=== PATIENT | female | born 1990 | race Caucasian/White ===

== ENCOUNTER 2025-02-09 17:02 | Inpatient (IN) ==
--- NOTE | 2025-02-09 17:59 | CT Scan Report ---
Clinical History: Possible stroke. Technique: Axial computed tomography images were obtained of the brain from the vertex to the skull base without intravenous contrast. Findings: There is no sign of intracranial hemorrhage. There is normal moya-white matter differentiation with no sign of acute or old infarction. No midline shift or other form of herniation is identified. There is no hydrocephalus. There is calcification in the left lentiform nucleus No obvious mass lesion is seen on this noncontrast examination. The visualized portions of the orbits and paranasal sinuses appear unremarkable. The mastoid air cells appear clear Impression: Unremarkable noncontrast CT of the brain Electronically signed by Brayden Fine 02-09-2025 5:57 PM
[2025-02-09 18:07] LABS: Hematocrit (blood only) 32.4 % (37.0-47.0); Hemoglobin 9.9 g/dl (12.0-16.0); Mean Corpuscular Hemoglobin 22.6 pg (25.0-34.0); Mean Corpuscular Volume 73.8 fL (80.0-100.0); Platelet Count 335 K/uL (130-400); RDW Standard Deviation 45.3 fL (36.4-46.3); Red Blood Count 4.39 M/uL (4.20-5.40); White Blood Count 7.60 K/ul (4.8-10.8)
--- NOTE | 2025-02-09 18:15 | Emergency Department Note ---
History of Present Illness General Chief complaint: Neuro Symptoms/Deficit Stated complaint: HEADACHES, NECK PAIN, ARM NUMBNESS Time Seen by Provider: 02/09/25 18:02 History of Present Illness This is a 34-year-old female that presents to the emergency department via private vehicle with complaints of "headaches, neck pain, arm numbness". The patient provides a detailed history noting that she began with a headache and nausea this past (02/04/25), then the following day on Saturday (02/05/25) she felt the same and began with her menstrual cycle. Then this past Saturday (02/06/25) evening she began with neck pain diffusely posteriorly and then this past Saturday (02/07/25) morning developed a headache, left arm numbness and neck pain that progressed into yesterday (02/08/25) morning noting same symptoms followed by same symptoms today. No speech trouble. No pertinent past medical history, surgeries or allergies. Intermittent chest pain noted and dyspnea. No history of CVA or TIA. No trauma or injury. No recent or current illness. Home Medications Medication Instructions Recorded Confirmed Type No Known Home Medications 02/09/25 02/09/25 History Allergies Allergy/AdvReac Type Severity Reaction Status Date / Time No Known Allergies Allergy Unverified 02/09/25 20:16 Past Med/Surg History Problem List Social History Smoking Status: Former smoker Tobacco Type: Cigarettes Preferred Language: Khmer Feels Safe at Home: Yes Review of Systems A total of 10 systems reviewed and were otherwise negative Physical Exam Vital Signs Vital Signs - 24 hr 02/09/25 17:03 02/09/25 17:03 02/09/25 17:11 Temperature 37.3 C Temperature Source Temporal Artery Scan Pulse Rate 126 H Pulse Rate [Finger] Pulse Rate from SpO2 Sensor Pulse Rhythm [Finger] Pulse Strength [Finger] Respiratory Rate 18 Respiratory Depth Blood Pressure 122/73 Blood Pressure [Left Arm] Blood Pressure Mean 89 Blood Pressure Mean [Left Arm] Blood Pressure Position [Left Arm] Pulse Oximetry 100 98 98 Oxygen Delivery Method Room Air Room Air Sepsis Recent Fever Within 48 Hours No Sepsis New/Unexplained Change in Mental Status N/A Sepsis Action Taken by Nursing No Action Required 02/09/25 17:43 02/09/25 18:40 02/09/25 19:30 Temperature Temperature Source Pulse Rate 92 H 98 H Pulse Rate [Finger] Pulse Rate from SpO2 Sensor 94 H Pulse Rhythm [Finger] Pulse Strength [Finger] Respiratory Rate 16 Respiratory Depth Blood Pressure 122/72 Blood Pressure [Left Arm] Blood Pressure Mean 88 Blood Pressure Mean [Left Arm] Blood Pressure Position [Left Arm] Pulse Oximetry 100 Oxygen Delivery Method Room Air Sepsis Recent Fever Within 48 Hours Sepsis New/Unexplained Change in Mental Status Sepsis Action Taken by Nursing 02/09/25 21:33 02/09/25 22:00 02/09/25 22:30 Temperature Temperature Source Pulse Rate 92 H 101 H Pulse Rate [Finger] 90 Pulse Rate from SpO2 Sensor Pulse Rhythm [Finger] Regular Pulse Strength [Finger] Normal Respiratory Rate 20 15 18 Respiratory Depth Normal Blood Pressure 117/67 105/65 Blood Pressure [Left Arm] 113/71 Blood Pressure Mean 83 78 Blood Pressure Mean [Left Arm] 85 Blood Pressure Position [Left Arm] Lying Pulse Oximetry 98 Oxygen Delivery Method Room Air Sepsis Recent Fever Within 48 Hours Sepsis New/Unexplained Change in Mental Status Sepsis Action Taken by Nursing 02/09/25 22:41 Temperature Temperature Source Pulse Rate 106 H Pulse Rate [Finger] Pulse Rate from SpO2 Sensor Pulse Rhythm [Finger] Pulse Strength [Finger] Respiratory Rate Respiratory Depth Blood Pressure Blood Pressure [Left Arm] Blood Pressure Mean Blood Pressure Mean [Left Arm] Blood Pressure Position [Left Arm] Pulse Oximetry Oxygen Delivery Method Sepsis Recent Fever Within 48 Hours Sepsis New/Unexplained Change in Mental Status Sepsis Action Taken by Nursing VITAL SIGNS - Vital signs and nursing notes were reviewed. Stable and afebrile. GENERAL -34-year-old female appearing her stated age who is in no acute distress. Communicates well with provider and answers questions appropriately. SKIN - Without rashes. No meningeal or petechial rash. HEAD - NC/AT. EYES - PERRL with EOMI bilaterally. Sclera anicteric. EARS - No deformities of external structures noted on gross examination bilaterally. External auditory canals without discharge or otorrhea. Tympanic membranes pearly moya without retraction or bulging. No fluid or purulent material visualized behind the TM. Handle of malleus, umbo, cone of light, pars tensa/flaccid all easily visualized. NOSE - Midline and without cyanosis. No epistaxis or purulent drainage noted. Septum midline without deviation or septal hematoma noted. MOUTH/OROPHARYNX - Without perioral cyanosis. Buccal mucosa pink and moist and without leukoplakia. Tongue midline with equal elevation of palate bilaterally. No tonsillar hypertrophy, erythema, or exudates noted. Good dentition noted. NECK - Neck with FROM. Supple to palpation. No lymphadenopathy noted. No nuchal rigidity. There is tenderness to palpation overlying the posterior neck within the paraspinous musculature. No C-spine tenderness. LUNGS - Chest wall symmetric without accessory muscle use, intercostals retractions, or central cyanosis. Normal vesicular breath sounds CTA B/L. No wheezes, rales, or rhonchi appreciated. CARDIAC - RRR EXTREMITIES - No clubbing or peripheral cyanosis. Bilateral biceps reflexes within normal limits. [employer] strength of the upper extremities within normal limits. Patient is unable to actively abduct the left shoulder but will abduct with the assist of her right hand to lift the arm. +5/5 strength noted in UE/LE bilaterally. NEUROLOGIC - Cranial nerves II through XII grossly intact. Sensory intact to light touch throughout. Sensory intact throughout the extremities without sensory deficit. PSYCH -alert, oriented and pleasant on exam. Course Administered Medications Discontinued Medications Ioversol (Optiray 320 125ml) 115 ml IV ONCE ONE Stop: 02/09/25 18:56 Last Admin: 02/09/25 18:55 Dose: 115 ml Documented By: JON Medical Decision Making Laboratory Data 02/09/25 17:45 02/09/25 17:45 Lab Results 02/09/25 02/09/25 Range/Units 17:45 18:08 WBC 7.60 (4.8-10.8) K/ul RBC 4.39 (4.20-5.40) M/uL Hgb 9.9 L (12.0-16.0) g/dl POC Hgb 9.2 L (12.0-16.0) g/dl Hct 32.4 L (37.0-47.0) % POC Hct 27 L (37-47) % MCV 73.8 L (80.0-100.0) fL MCH 22.6 L (25.0-34.0) pg MCHC 30.6 L (32.0-36.0) g/dL RDW Std Deviation 45.3 (36.4-46.3) fL RDW Coeff of Rosi 16.9 H (11.5-14.5) % Plt Count 335 (130-400) K/uL MPV 9.6 (9.4-12.4) fL PT 10.9 (9.0-12.0) Seconds INR 1.0 (0.9-1.1) APTT 27 (21-31) Seconds PTT Ratio 1.0 POC Sodium 139 (135-144) mmol/L Sodium 139 (136-145) mmol/L POC Potassium 3.6 (3.3-5.0) mmol/L Potassium 3.6 (3.5-5.1) mmol/L POC Chloride 103 (101-112) mmol/L Chloride 103 (98-107) mmol/L Carbon Dioxide 26 (21-32) mmol/L POC Total CO2 23 L (24-31) mmol/L Anion Gap 10 (3-11) POC Anion Gap 18.0 (16-25) mmol/L POC BUN 12 (7-18) mg/dl BUN 13 (6-23) mg/dl Creatinine 0.59 L (0.6-1.2) mg/dl POC Creatinine 0.6 (0.6-1.3) mg/dl Est Cr Clr Drug Dosing 113.7 ml/min eGFR 121.21 BUN/Creatinine Ratio 22.0 H (10-20) Glucose 127 H (70-99(Fasting)) mg/dl POC Glucose (other) 122 H (70-99) mg/dl Calcium 9.5 (8.6-10.3) mg/dl POC Ioniz Calcium Christie 1.20 (1.12-1.32) mmol/l Magnesium 2.1 (1.7-2.4) mg/dl Total Bilirubin 0.4 (0.2-1.0) mg/dl AST 45 H (13-39) U/L ALT 50 (7-52) U/L Alkaline Phosphatase 78 (34-104) U/L Troponin I High Sens < 2.3 (0-14) pg/ml Total Protein 8.4 H (6.0-8.3) gm/dl Albumin 4.5 (3.4-5.0) gm/dl Globulin 3.9 (2.5-4.0) gm/dl Albumin/Globulin Ratio 1.2 (0.9-2) HCG, Qual Negative (Negative) Imaging Data Radiologist's Impression: Head CT 02/09/25 17:11 Clinical History: Possible stroke. Technique: Axial computed tomography images were obtained of the brain from the vertex to the skull base without intravenous contrast. Findings: There is no sign of intracranial hemorrhage. There is normal moya-white matter differentiation with no sign of acute or old infarction. No midline shift or other form of herniation is identified. There is no hydrocephalus. There is calcification in the left lentiform nucleus No obvious mass lesion is seen on this noncontrast examination. The visualized portions of the orbits and paranasal sinuses appear unremarkable. The mastoid air cells appear clear Impression: Unremarkable noncontrast CT of the brain Electronically signed by Brayden Fine 02-09-2025 5:57 PM Head CTA 02/09/25 18:14 Clinical history: Headache Technique: Axial computed tomography images were obtained of the brain after the administration of intravenous contrast according to the CT angiogram protocol Findings: There is calcification within the left lentiform nucleus No definite stenosis or aneurysm is seen of the anterior, middle, or posterior cerebral artery circulations. The visualized vertebral arteries and the basilar artery appear unremarkable Impression: No definite stenosis or aneurysm of the intracranial arteries Electronically signed by Brayden Fine 02-09-2025 7:10 PM Neck CTA 02/09/25 18:14 Clinical history: Neck pain Technique: Axial computed tomography images were obtained of the neck after the administration of intravenous contrast according to the CT angiogram protocol Findings: No stenosis is seen of the common carotid arteries bilaterally. The carotid bulbs appear normal. The remainder of the internal carotid arteries appear patent bilaterally. No stenosis of the external carotid arteries is seen The vertebral arteries are patent bilaterally with no significant stenosis seen. The visualized thoracic aorta appears unremarkable Impression: No definite stenosis of the neck arteries Electronically signed by Brayden Fine 02-09-2025 7:14 PM Chest CTA 02/09/25 18:17 CT pulmonary angiogram with IV contrast History: Chest pain COMPARISON: None TECHNIQUE: CT angiography of the chest was performed without IV contrast followed by IV contrast, including 3D post processing CTA image reconstruction. Dose reduction techniques were achieved by using automatic exposure control and/or adjustment of mA and/or kV according to patient size and/or use of iterative reconstruction technique. FINDINGS: Diagnostic quality: Adequate There is no evidence for pulmonary embolism. The heart is not enlarged. There is no pericardial effusion. There are no abnormally enlarged hilar or mediastinal lymph nodes. The central tracheobronchial tree is clear. The lungs are clear. There is no pleural effusion. Limited visualized upper abdomen. No destructive osseous changes are seen. IMPRESSION: No evidence for pulmonary embolism. Electronically signed by Agapito Godoyraeannie 02-09-2025 7:18 PM Cervical Spine MRI 02/09/25 19:27 Exam(s): MRI C SPINE EXAM: MR Cervical Spine Without Intravenous Contrast CLINICAL HISTORY: Reason for exam: neck pain, L arm numbness/pain. TECHNIQUE: Magnetic resonance images of the cervical spine without intravenous contrast in multiple planes. COMPARISON: No relevant prior studies available. FINDINGS: Vertebrae: Unremarkable. No acute fracture. Spinal cord: See below. Soft tissues: Unremarkable. DISCS/SPINAL CANAL/NEURAL FORAMINA: C2-C3: Unremarkable. No significant disc disease. No stenosis. C3-C4: Unremarkable. No significant disc disease. No stenosis. C4-C5: Unremarkable. No significant disc disease. No stenosis. C5-C6: Broad-based posterior disc bulge at C5-C6 resulting in mild effacement of the anterior epidural space without significant canal or foraminal stenosis. No cord signal abnormality. C6-C7: Unremarkable. No significant disc disease. No stenosis. C7-T1: Unremarkable. No significant disc disease. No stenosis. IMPRESSION: No acute findings in the cervical spine. Electronically signed by: Bryan Holguin MD 02/09/25 22:12 PM [facility] Narrative Patient was seen and evaluated as above in room B09. Review was performed of triage nursing notes and vital signs. No previous visits for review at time of evaluation. After obtaining a thorough history and physical examination the above work up was performed. Patient presents to us today for evaluation of left upper extremity numbness extending from the left shoulder to the left elbow with associated weakness. Patient is not a TNK candidate noting timing of symptoms. The patient has symptoms today that progressively worsened since this past , and all of which were present yesterday into today. Patient denies any trauma or injury. Options of care were discussed with the patient. IV access was established. Labs were drawn. Patient is tachycardic on arrival. Laboratory studies here reveal no leukocytosis. There is anemia with hemoglobin at 9.9, no previous to compare. Coags are normal. No evidence of kidney or liver failure. hCG returned negative. There is mild elevation of AST at 45. Troponin within normal range. An EKG was performed and per my interpretation this reveals normal sinus rhythm at a rate of 92 bpm. QTc 442. QRS 102. No ST elevation on this rhythm tracing. CT Noncon of the head was negative. Patient then underwent angio studies of the head and neck but also chest noting a tachycardic state, intermittent chest pain per patient as well as the head and neck pain. It was felt that the benefit outweighed risk. Results as above. These were essentially negative. Suspicion was more of cervical radiculopathy noting overall negative CTAs therefore MRI of the C-spine was performed to further assess the patient's left upper extremity numbness and apparent inability to abduct the left shoulder secondary to weakness/numbness. The MRI of the neck was essentially negative for acute process. There was note of a broad-based posterior disc bulge at C5-C6 but this only resulted in mild effacement of the anterior epidural space without significant canal or foraminal stenosis. No cord signal abnormality. At this time noting the patient's ongoing left upper extremity symptoms I do believe that further evaluation and management in the inpatient setting is warranted. There is no reproducible tenderness when I palpate overlying the left shoulder area. No reported injury to suggest rotator cuff injury or similar. The case was discussed with the hospitalist service. Please refer to further documentation regarding her stay. I discussed the case with Dr. Krishnamurthy, not in the hospitalist at 2245 HRS. Initially I had ordered MRI brain in further workup but patient does note significant claustrophobia. Plan will be to proceed with this at a later time as the patient may require medication for this. In the evaluation and treatment of this patient the following differential diagnoses were entertained: CVA, TIA, cervical radiculopathy, vertebral artery dissection, strain, sprain, among others. Impression & Plan Left upper extremity numbness, Headache, Neck pain Discharge Plan Visit Data Chief Complaint: Neuro Symptoms/Deficit Stated Complaint: HEADACHES, NECK PAIN, ARM NUMBNESS ED Provider: Ariel Chen ED Midlevel Provider: Sage Vanegas Prescriptions Prescriptions: No Action No Known Home Medications
[2025-02-09 18:23] LABS: Pregnancy Test, Serum Negative (Negative)
[2025-02-09 18:26] LABS: Alanine Aminotransferase 50 U/L (7-52); Albumin Globulin Ratio 1.2 (0.9-2); Alkaline Phosphatase 78 U/L (34-104); Anion Gap 10 (3-11); Bilirubin,Total 0.4 mg/dl (0.2-1.0); Blood Urea Nitrogen 13 mg/dl (6-23); Calcium 9.5 mg/dl (8.6-10.3); Carbon Dioxide 26 mmol/L (21-32); Chloride 103 mmol/L (98-107); Creatinine Clr Calc Pharmacy 113.7 ml/min; Globulin 3.9 gm/dl (2.5-4.0); Glucose 127 mg/dl (70-99(Fasting)); Magnesium 2.1 mg/dl (1.7-2.4); Potassium 3.6 mmol/L (3.5-5.1); Sodium 139 mmol/L (136-145); Total Protein 8.4 gm/dl (6.0-8.3)
[2025-02-09 18:50] LABS: INR 1.0 (0.9-1.1); Partial Thromboplastin Time 27 Seconds (21-31); Prothrombin Time 10.9 Seconds (9.0-12.0)
[2025-02-09] MEDS: OPTIRAY 320 125ml IV ONE (18:55)
--- NOTE | 2025-02-09 19:10 | CT Scan Report ---
Clinical history: Headache Technique: Axial computed tomography images were obtained of the brain after the administration of intravenous contrast according to the CT angiogram protocol Findings: There is calcification within the left lentiform nucleus No definite stenosis or aneurysm is seen of the anterior, middle, or posterior cerebral artery circulations. The visualized vertebral arteries and the basilar artery appear unremarkable Impression: No definite stenosis or aneurysm of the intracranial arteries Electronically signed by Brayden Fine 02-09-2025 7:10 PM
--- NOTE | 2025-02-09 19:14 | CT Scan Report ---
Clinical history: Neck pain Technique: Axial computed tomography images were obtained of the neck after the administration of intravenous contrast according to the CT angiogram protocol Findings: No stenosis is seen of the common carotid arteries bilaterally. The carotid bulbs appear normal. The remainder of the internal carotid arteries appear patent bilaterally. No stenosis of the external carotid arteries is seen The vertebral arteries are patent bilaterally with no significant stenosis seen. The visualized thoracic aorta appears unremarkable Impression: No definite stenosis of the neck arteries Electronically signed by Brayden Fine 02-09-2025 7:14 PM
--- NOTE | 2025-02-09 19:18 | CT Scan Report ---
CT pulmonary angiogram with IV contrast History: Chest pain COMPARISON: None TECHNIQUE: CT angiography of the chest was performed without IV contrast followed by IV contrast, including 3D post processing CTA image reconstruction. Dose reduction techniques were achieved by using automatic exposure control and/or adjustment of mA and/or kV according to patient size and/or use of iterative reconstruction technique. FINDINGS: Diagnostic quality: Adequate There is no evidence for pulmonary embolism. The heart is not enlarged. There is no pericardial effusion. There are no abnormally enlarged hilar or mediastinal lymph nodes. The central tracheobronchial tree is clear. The lungs are clear. There is no pleural effusion. Limited visualized upper abdomen. No destructive osseous changes are seen. IMPRESSION: No evidence for pulmonary embolism. Electronically signed by Mao Godoy 02-09-2025 7:18 PM
--- NOTE | 2025-02-09 22:13 | Magnetic Resonance Report ---
Exam(s): MRI C SPINE EXAM: MR Cervical Spine Without Intravenous Contrast CLINICAL HISTORY: Reason for exam: neck pain, L arm numbness/pain. TECHNIQUE: Magnetic resonance images of the cervical spine without intravenous contrast in multiple planes. COMPARISON: No relevant prior studies available. FINDINGS: Vertebrae: Unremarkable. No acute fracture. Spinal cord: See below. Soft tissues: Unremarkable. DISCS/SPINAL CANAL/NEURAL FORAMINA: C2-C3: Unremarkable. No significant disc disease. No stenosis. C3-C4: Unremarkable. No significant disc disease. No stenosis. C4-C5: Unremarkable. No significant disc disease. No stenosis. C5-C6: Broad-based posterior disc bulge at C5-C6 resulting in mild effacement of the anterior epidural space without significant canal or foraminal stenosis. No cord signal abnormality. C6-C7: Unremarkable. No significant disc disease. No stenosis. C7-T1: Unremarkable. No significant disc disease. No stenosis. IMPRESSION: No acute findings in the cervical spine. Electronically signed by: Bryan Holguin MD 02/09/25 22:12 PM
--- NOTE | 2025-02-09 23:44 | History & Physical Report ---
Date of Service February 09, 2025 Assessment & Plan (1) Left upper extremity numbness: (2) Complicated migraine: Plan Patient is a 34 y/o F with PMHx of migraines who comes to the ED after experiencing progressively worsening headaches since 02/04. (L) UE weakness Hx migraines - Head CT, Head CTA, Neck CTA, and Chest CTA all unremarkable - C-spine MRI showing broad-based posterior disc bulge at C5-C6 resulting in mild effacement of the anterior epidural space without significant canal or foraminal stenosis. Low suspicion for this being the cause given exam findings and distribution of sxs. - Given that symptoms were only present when she was experiencing headaches, and given her known hx of migraines, believe that current presentation may be due to complicated migraines. - Admit to Med/Surg - MRI brain ordered - Pain control with Tylenol jeffrey, as well as Toradol for breakthrough pain, and if MRI unremarkable, can add Sumatriptan which she could continue to use for abortive therapy after discharge - LR @ 100 ml/hr - Would encourage establishing with PCP for routine f/u and for monitoring of her migraines Dispo: Med/Surg Fluids: LR @ 100 ml/hr Diet: Regular Pain Control: Tylenol jeffrey, Toradol for breakthrough pain; can add Sumatriptan if MRI brain unremarkable VTE ppx: Ambulation Code Status: FULL History of Present Illness Chief Complaint: Arm weakness Primary Care Provider: NO PCP Patient is a 34 y/o F with PMHx of migraines who comes to the ED after experiencing progressively worsening headaches since 02/04. The day after her headache appeared, she developed nausea and on 02/06 started to develop some neck tightness along with her headache. Sxs persisted and on 02/07-02/08 she started to experience pain in her left shoulder that was achy and felt like shooting down her arm sometimes, numbness down her left arm and then developed weakness in her left arm. Sxs always accompanied by headaches. Sxs more bothersome with start of menses on 02/05-02/06. Not currently on hormonal methods of contraception. Denies trauma, hx of surgical intervention, or other preceding/precipitating events. No fevers, chills, chest pain, SOB/EDWARDS, or other systemic sxs. Medical History: [Reviewed] Medications: [Reviewed] Surgical History: [Reviewed] Family history: [Reviewed] Allergies: [Reviewed] Social History: [Reviewed] Code Status: FULL Allergies Allergy/AdvReac Type Severity Reaction Status Date / Time No Known Allergies Allergy Unverified 02/09/25 20:16 Home Medications Medication Instructions Recorded Confirmed Type No Known Home Medications 02/09/25 02/09/25 History Past Med/Surg History Problem List (Updated 02/09/25 @ 23:53 by Mely Colón MD) Complicated migraine Left arm weakness Neck pain (Acute) Headache (Acute) Left upper extremity numbness (Acute) Social History Smoking Status: Never smoker Tobacco Type: Cigarettes Hx Alcohol Use: Yes Hx Substance Use: No Preferred Language: Venezuelan Communication Ability: Effective Seismograph Computer Required: No Beliefs That Will Affect Care: None Current Living Situation: Significant Other Other Information That Helps Us Care for You: No Feels Safe at Home: Yes Safety Concerns: Feels Safe At This Time Assistive Devices: None Review of Systems Review of Systems: As per HPI Physical Exam Physical Exam: GENERAL: AAOX3, afebrile, NAD HEAD: AT, NC EYES: NEIL, EOM intact THROAT: normal to visual inspection CHEST: symmetric chest expansions with respirations CARDIO: RRR, no r/m/g PULMONARY: CT bilaterally, normal respiratory distress GI: soft, nontender, nondistended EXTREMITIES: No obvious deformity or skin discoloration noted on exam, 5/5 strength in right UE, 4/5 strength in left UE, no sensorial changes noted, negative Spurlings bilaterally, unable to fully ABD left arm past 90 degrees, full ABD in right arm Results & Data Results & Data Vital Signs (Past 12 Hours) Vital Signs Temp Pulse Pulse Resp BP BP Pulse Ox 02/09/25 22:41 106 H 02/09/25 22:30 101 H 18 105/65 02/09/25 22:00 92 H 15 117/67 02/09/25 21:33 90 20 113/71 98 02/09/25 19:30 98 H 16 122/72 100 02/09/25 18:40 92 H 02/09/25 17:43 02/09/25 17:11 98 02/09/25 17:03 98 02/09/25 17:03 37.3 C 126 H 18 122/73 100 O2 Del Method 02/09/25 22:41 02/09/25 22:30 02/09/25 22:00 02/09/25 21:33 Room Air 02/09/25 19:30 02/09/25 18:40 02/09/25 17:43 Room Air 02/09/25 17:11 Room Air 02/09/25 17:03 Room Air 02/09/25 17:03 Supervising Physician Co-Signing Physician Notes Attending addendum: I have physically seen this patient, have supervised the medical residents activities, and agree with the H&P unless as otherwise noted. Assessment and Plan: The patient is a 34-year-old female with past medical history including migraines, who presents to the emergency department with progressively worsening headache since 02/04, and the development of left upper extremity numbness and w eakness down to elbow over the past few days. She underwent CT scan head, CTA head and neck, and CTA PE protocol by ED, all of which were negative. She underwent MRI of cervical spine, which showed a posterior disc bulge at C5-C6, resulting in mild effacement of the anterior epidural space without significant canal or foraminal stenosis. She was then referred for evaluation for admission due to the persistence of her symptoms. Left upper extremity weakness- Patient describes symptoms as extending across her left shoulder down to the level of her elbow. She does not describe neck pain per se. She has no history of trauma or any type of overuse syndrome as reviewed with her. MRI C-spine shows a broad-based posterior disc bulge at C5-C6 resulting in mild effacement of the anterior epidural space without significant canal or foraminal stenosis Admit to medical surgical Order MRI brain Acetaminophen 1 g IV every 8 hours as needed for mild pain or fever Toradol 10 mg IV every 6 hours as needed for breakthrough pain LR at 100 mL/h Differential including complicated migraine, as patient has had progressively worsening headaches since 02/04 Migraine headaches- Not currently on treatment If MRI of brain is negative, consider addition of sumatriptan for use post discharge Resident Activity Tracking Resident Involvement: Resident Care Provided Care Provided: Adult [facility]
[2025-02-09] MEDS ORDERED: MELATONIN 3 MG TAB PO PRN (23:53)
[2025-02-09] MEDS ORDERED: POLYETHYLENE (MIRALAX) 17 GM PACK PO PRN (23:53)
[2025-02-09] MEDS ORDERED: ONDANSETRON INJ 2 MG/ML 2 ML VIAL IV PRN (23:53)
[2025-02-10] MEDS: ACETAMINOPHEN 500 MG TAB PO SCH (00:42)
[2025-02-10] MEDS: LACTATED RINGER'S 1,000 ML IV SCH (00:42)
--- NOTE | 2025-02-10 00:53 | Magnetic Resonance Report ---
EXAM: MR brain wo con CLINICAL HISTORY: Weakness TECHNIQUE: Multisequential and multiplanar images of the brain were submitted for review without contrast. COMPARISON: none FINDINGS: The brain shows normal morphology, signal intensity, and volume for age. No focal parenchymal lesions are seen. No intracranial hemorrhage, mass effect, midline shift, extra-axial collection, or hydrocephalus is identified. Ventricles, sulci, and basal cisterns are symmetric and normal in size and configuration. Diffusion-weighted sequences show no evidence of acute ischemic infarction. Midline structures including the pituitary gland, corpus callosum, pineal region, and brainstem are unremarkable. The craniovertebral junction is within normal limits. No calvarial abnormalities are identified. The paranasal sinuses and mastoid air cells are clear. Orbital structures are unremarkable. Appropriate flow voids are present in the visualized intracranial vessels. IMPRESSION: 1. No acute ischemia, space occupying mass, or other acute intracranial pathology is demonstrated. Electronically signed by Catracho Can 02-10-2025 12:52 AM
[2025-02-10 01:08] LABS: Lyme Screen Rflx Confirmation Equivocal (Negative)
[2025-02-10 01:52] LABS: Lyme Ab IgG 2nd Tier Confirm Negative (Negative); Lyme Ab IgM 2nd Tier Confirm Positive (Negative)
--- NOTE | 2025-02-10 03:08 | Billing Data ---
Date of Service February 10, 2025 Coding Level of Care Code 13970 INT INP/OBS CARE
[2025-02-10] MEDS: DOXYCYCLINE HYCLATE 100 MG CAP PO SCH (08:43)
[2025-02-10] MEDS: SODIUM CHLORIDE 0.9% 1,000 ML IV SCH ×2 (12:06→18:49)
--- NOTE | 2025-02-10 12:10 | Electrocardiogram Report ---
Test Reason : Blood Pressure : */* mmHG Vent. Rate : 92 BPM Atrial Rate : 92 BPM P-R Int : 162 ms QRS Dur : 102 ms QT Int : 358 ms P-R-T Axes : 51 100 45 degrees QTcB Int : 442 ms Normal sinus rhythm Rightward axis Incomplete right bundle branch block Nonspecific ST and T wave abnormality No previous ECGs available Confirmed by Ghanshyam Gates ([id number]) on 02/10/2025 12:10:35 PM Referred By: Confirmed By: Ghanshyam Gates
[2025-02-10] MEDS: OPTIRAY 320 125ml IV ONE (14:42)
--- NOTE | 2025-02-10 14:45 | Ultrasound Report ---
ULTRASOUND LEFT UPPER EXTREMITY VENOUS CLINICAL HISTORY: Acute pain and swelling of the left arm. COMPARISON STUDY: None. TECHNIQUE: Real-time, grayscale, and color Doppler sonography of the deep veins of the left upper ext remity is performed. Compression and augmentation were utilized. FINDINGS: There is no sonographic evidence of deep venous thrombosis identified in the left upper ext remity. The left internal jugular, axillary, and brachial veins are patent and normally compressible. Normal venous waveforms and augmentation are seen within the left subclavian vein. The cephalic and basilic veins are not well-visualized. The visualized radial and ulnar veins are patent. IMPRESSION: There is no sonographic evidence of deep venous thrombosis identified in the left upper e xtremity. ACT 112: Negative or not required by law. Electronically signed by: Chris Morley M.D. 02/10/2025 2:44 PM
[2025-02-10] MEDS: ONDANSETRON INJ 2 MG/ML 2 ML VIAL IV PRN (14:59)
--- NOTE | 2025-02-10 15:12 | CT Scan Report ---
CT abdomen pelvis wo/w con CLINICAL HISTORY: anemia, r/o abdominal mass COMPARISON STUDY: None FINDINGS: There is a very small left pleural effusion at the left base versus oblong pericardial cyst . Vascular findings: There is no abdominal aortic aneurysm or dissection. No aortic luminal narrowing. Mesenteric and renal arteries are widely patent. Visualized arterial outflow is widely patent. No rajendra dence of hematoma or active bleeding seen. ABDOMEN: Liver and spleen have heterogeneous enhancement, likely due to arterial phase exam. Otherwis e liver, spleen, gallbladder, pancreas, and adrenal glands are unremarkable. Kidneys show no hydronep hrosis or calculi. Pelvis: Uterus and adnexa are grossly unremarkable. Urinary bladder is nondistended. No bowel inflamm ation or obstruction seen. There is moderate retained stool. No free fluid, free air, or abscess. No enlarged adenopathy. No abdominal or pelvic mass seen. Osseous structures: No acute osseous findings. IMPRESSION: No acute findings. ACT 112: Negative or not required by law. Electronically signed by: Chris Huff M.D. 02/10/2025 3:11 PM
--- NOTE | 2025-02-10 15:28 | CT Scan Report ---
CT angio chest dissec wo/w con HISTORY: 34 years-old Female with headache, left arm numbess, and pain. Acute chest pain without a TECHNIQUE: Multiple CTA images of the chest were obtained before and after the intravenous administra tion of 115 ml Optiray. Coronal and sagittal MIPS were obtained from the axial data set and were sub mitted for review. All measurements were obtained according to NASCET criteria. A dose lowering tech nique was utilized adhering to the principles of ALARA. COMPARISON: CT abdomen and pelvis of same day, CTA chest 02/09/2025 FINDINGS: CTA: There is adequate opacification of the pulmonary arteries to the level of the segmental branches with out convincing evidence of acute pulmonary embolism. Normal thoracic aorta without aneurysm, dissecti on, intramural hematoma or atherosclerosis.Heart size is normal. CT CHEST: No dominant thyroid nodule is seen. Small amount of residual thymic tissue noted within the anterior mediastinum. No pathologically adenopathy by CT size criteria. Trace pleural effusions. Minimal linea r subsegmental atelectasis versus scarring again noted within the inferior segment lingula. There is no pneumothorax, or focal airspace consolidation. Cystic structure within the left lower chest redem onstrated on image 213 measuring 10.5 x 3.8 cm. The imaged upper abdominal structures demonstrate no acute abnormality. Heterogeneity of the liver i s nonspecific and may be secondary to phase of postcontrast imaging. The osseous structures appear in tact. IMPRESSION: 1. Unremarkable CTA of the chest. 2. Trace pleural effusions. 3. Probable pericardial cyst redemonstrated measuring 10 cm. ACT 112: Negative or not required by law. The above report was generated using voice recognition software. It may contain grammatical, syntax o r spelling errors. Electronically signed by: Chris Morley M.D. 02/10/2025 3:27 PM
[2025-02-10 15:31] LABS: Hematocrit (blood only) 31.7 % (37.0-47.0); Hemoglobin 9.7 g/dl (12.0-16.0); Mean Corpuscular Hemoglobin 22.4 pg (25.0-34.0); Mean Corpuscular Volume 73.0 fL (80.0-100.0); Platelet Count 274 K/uL (130-400); RDW Standard Deviation 44.2 fL (36.4-46.3); Red Blood Count 4.34 M/uL (4.20-5.40); White Blood Count 8.70 K/ul (4.8-10.8)
[2025-02-10] MEDS: KETOROLAC TROMETHAMINE 15 MG/ML VIAL IV PRN (15:36)
--- NOTE | 2025-02-10 16:02 | Hospitalist Progress Note ---
Date of Service February 10, 2025 Assessment & Plan (1) Left upper extremity numbness: (2) Complicated migraine: Plan Patient is a 34 y/o F with PMHx of migraines who comes to the ED after experiencing progressively worsening headaches since 02/04. her brain MRI and CTA negative however, around 3:30pm on 02/10/2025; she spike fever of 38.8 check blood culture, fever episode check blood culture, urine culture consult ID neurology notified, suspect she need Lumbar puncture (L) UE weakness Hx migraines - Head CT, Head CTA, Neck CTA, and Chest CTA all unremarkable - C-spine MRI showing broad-based posterior disc bulge at C5-C6 resulting in mild effacement of the anterior epidural space without significant canal or foraminal stenosis. Low suspicion for this being the cause given exam findings and distribution of sxs. - Given that symptoms were only present when she was experiencing headaches, and given her known hx of migraines, believe that current presentation may be due to complicated migraines. - Admit to Med/Surg - MRI brain ordered - Pain control with Tylenol jeffrey, as well as Toradol for breakthrough pain, and if MRI unremarkable, can add Sumatriptan which she could continue to use for abortive therapy after discharge - LR @ 100 ml/hr - Would encourage establishing with PCP for routine f/u and for monitoring of her migraines Diet: Regular Pain Control: Tylenol jeffrey, Toradol for breakthrough pain; can add Sumatriptan if MRI brain unremarkable VTE ppx: Ambulation Code Status: FULL Admission and Anticipated Discharge Date Admission Date: February 09, 2025 Supervising Physician Co-Signing Physician Notes Attending addendum: I have physically seen this patient, have supervised the medical residents activities, and agree with the H&P unless as otherwise noted. Assessment and Plan: The patient is a 34-year-old female with past medical history including migraines, who presents to the emergency department with progressively worsening headache since 02/04, and the development of left upper extremity numbness and weakness down to elbow over the past few days. She underwent CT scan head, CTA head and neck, and CTA PE protocol by ED, all of which were negative. She underwent MRI of cervical spine, which showed a posterior disc bulge at C5-C6, r esulting in mild effacement of the anterior epidural space without significant canal or foraminal stenosis. She was then referred for evaluation for admission due to the persistence of her symptoms. Left upper extremity weakness- Patient describes symptoms as extending across her left shoulder down to the level of her elbow. She does not describe neck pain per se. She has no history of trauma or any type of overuse syndrome as reviewed with her. MRI C-spine shows a broad-based posterior disc bulge at C5-C6 resulting in mild effacement of the anterior epidural space without significant canal or foraminal stenosis Admit to medical surgical Order MRI brain Acetaminophen 1 g IV every 8 hours as needed for mild pain or fever Toradol 10 mg IV every 6 hours as needed for breakthrough pain LR at 100 mL/h Differential including complicated migraine, as patient has had progressively worsening headaches since 02/04 Migraine headaches- Not currently on treatment If MRI of brain is negative, consider addition of sumatriptan for use post discharge Subjective she was examine at 1pm was mentioned headache episode on and then on saturday/saturday was having left arm numbness and pain. also been having back pain brain MRI and brain C-spine are negative CTA head and neck are negative around 3:30pm, notifed by nursing that patient spike fever of 38.8 check blood culture, empiric coverage. Review of Systems Review of Systems: Constitutional:fever episode Cardiovascular: No Chest Pain, No SOB, No PND, No Dyspnea on Exertion, No Orthopnea, No Claudication, No Edema, No Palpitations Respiratory: No Cough, No Sputum, No Wheezing, No Smoke Exposure, No Dyspnea Gastrointestinal: No Nausea, No Vomiting, No Diarrhea, No Constipation, No Pain, No Heartburn, No Anorexia, No Dysphagia, No Hematochezia, No Melena, No Flatulence, No Jaundice Genitourinary: no dysuria Musculoskeletal: No Arthralgias, No Myalgias, No Joint Swelling, No Joint Stiffness, No Back Pain, No Neck Pain, No Injury History Skin: No Skin Lesions, No Pruritis, No Hair Changes, No Breast/Skin Changes, No Nipple Discharge Neuro: +for headache; left arm weakness; no confusion, no dizziness. Heme/Lymph: No Bruising, No Bleeding, No Transfusions History, No Lymphadenopathy Endocrine: No Polyuria, No Polydipsia, No Temperature Intolerance Physical Exam Physical Exam: VITALS: Reviewed. WEIGHT/BMI reviewed. GEN: Healthy appearing, well-developed, NAD. PSYCH: Good Judgment. AOx3. Normal memory, mood, and affect. HEENT -Head: NC/AT; -Eyes: PERRL, EOMI. No discharge or redn ess; -Ears: External ears are normal. Normal TMs. -Nose: Normal nares. -Mouth and throat: MMM. Normal gums, muc colby, palate,. Good dentition. NECK: Supple, with no masses. CV: RRR, no m/r/g. LUNGS: CTAB, no w/r/c. ABD: Soft, NT/ND, NBS, no masses or organomegaly. : N/A SKIN: Warm, well perfused. No skin rashes or abnormal lesions. MSK: No deformities, Normal gait. shoulder has normal ROM EXT: No clubbing, cyanosis, or edema. NEURO: Ambulating with no limitations. Normal muscle strength and tone. No focal deficits. Results & Data Results & Data Vital Signs (Past 12 Hours) Vital Signs Temp Pulse Pulse Resp BP BP Pulse Ox 02/10/25 15:42 38.8 C H 99 H 19 100/69 96 02/10/25 14:00 77 13 106/74 97 02/10/25 12:12 96 H 20 106/64 99 02/10/25 12:00 84 15 100 02/10/25 12:00 106/64 02/10/25 12:00 106/64 02/10/25 11:51 94 H 21 100 02/10/25 11:39 106/61 02/10/25 11:33 89 20 106/61 100 02/10/25 11:27 90 23 100 02/10/25 11:15 90 19 100 02/10/25 11:00 89 16 94/68 L 100 02/10/25 10:51 91 H 24 100 02/10/25 10:33 88 18 99 02/10/25 10:21 91 H 19 100 02/10/25 10:12 85 15 99 02/10/25 10:03 82 16 99 02/10/25 10:00 84/64 L 02/10/25 10:00 84/64 L 02/10/25 09:33 78 20 97 02/10/25 08:39 78 17 97 02/10/25 08:00 76 24 98 02/10/25 08:00 100/69 02/10/25 08:00 100/69 02/10/25 07:51 86 12 100 02/10/25 07:42 76 23 100 02/10/25 07:30 79 15 100 02/10/25 07:28 100/61 02/10/25 07:28 100/61 02/10/25 07:21 88 12 99 02/10/25 07:12 76 19 98 02/10/25 07:06 70 22 98 02/10/25 06:59 63 02/10/25 06:51 71 16 98/63 L 98 02/10/25 06:45 68 19 99 02/10/25 06:21 64 18 97 02/10/25 06:15 72 27 H 97 02/10/25 06:00 98/63 L 02/10/25 06:00 98/63 L 02/10/25 06:00 72 17 97 02/10/25 06:00 66 16 98/63 L 100 02/10/25 05:51 73 23 97 02/10/25 05:45 76 32 H 97 02/10/25 05:39 72 22 97 02/10/25 05:21 71 28 H 97 02/10/25 05:18 76 26 H 97 02/10/25 05:06 75 17 97 02/10/25 04:51 83 16 98 02/10/25 04:36 69 27 H 97 02/10/25 04:00 95/60 L O2 Del Method 02/10/25 15:42 Room Air 02/10/25 14:00 Room Air 02/10/25 12:12 02/10/25 12:00 02/10/25 12:00 02/10/25 12:00 02/10/25 11:51 02/10/25 11:39 02/10/25 11:33 02/10/25 11:27 02/10/25 11:15 02/10/25 11:00 02/10/25 10:51 02/10/25 10:33 02/10/25 10:21 02/10/25 10:12 02/10/25 10:03 02/10/25 10:00 02/10/25 10:00 02/10/25 09:33 02/10/25 08:39 02/10/25 08:00 02/10/25 08:00 02/10/25 08:00 02/10/25 07:51 02/10/25 07:42 02/10/25 07:30 02/10/25 07:28 02/10/25 07:28 02/10/25 07:21 02/10/25 07:12 02/10/25 07:06 02/10/25 06:59 02/10/25 06:51 02/10/25 06:45 02/10/25 06:21 02/10/25 06:15 02/10/25 06:00 02/10/25 06:00 02/10/25 06:00 02/10/25 06:00 Room Air 02/10/25 05:51 02/10/25 05:45 02/10/25 05:39 02/10/25 05:21 02/10/25 05:18 02/10/25 05:06 02/10/25 04:51 02/10/25 04:36 02/10/25 04:00 Laboratory Results Laboratory Results - last 72 hr 02/09/25 02/09/25 02/09/25 17:45 18:08 23:56 WBC 7.60 RBC 4.39 Hgb 9.9 L POC Hgb 9.2 L Hct 32.4 L POC Hct 27 L MCV 73.8 L MCH 22.6 L MCHC 30.6 L RDW Std Deviation 45.3 RDW Coeff of Rosi 16.9 H Plt Count 335 MPV 9.6 PT 10.9 INR 1.0 APTT 27 PTT Ratio 1.0 POC Sodium 139 Sodium 139 POC Potassium 3.6 Potassium 3.6 POC Chloride 103 Chloride 103 Carbon Dioxide 26 POC Total CO2 23 L Anion Gap 10 POC Anion Gap 18.0 POC BUN 12 BUN 13 Creatinine 0.59 L POC Creatinine 0.6 Est Cr Clr Drug Dosing 113.7 eGFR 121.21 BUN/Creatinine Ratio 22.0 H Glucose 127 H POC Glucose (other) 122 H Calcium 9.5 POC Ioniz Calcium Christie 1.20 Magnesium 2.1 Total Bilirubin 0.4 AST 45 H ALT 50 Alkaline Phosphatase 78 Troponin I High Sens < 2.3 Total Protein 8.4 H Albumin 4.5 Globulin 3.9 Albumin/Globulin Ratio 1.2 HCG, Qual Negative Anaplasma Smear See Comment Babesia Smear See Comment Lyme Disease Screen Equivocal H Lyme Tier 2 IgG Confirm Negative Lyme Tier 2 IgM Confirm Positive H 02/10/25 15:09 WBC 8.70 RBC 4.34 Hgb 9.7 L POC Hgb Hct 31.7 L POC Hct MCV 73.0 L MCH 22.4 L MCHC 30.6 L RDW Std Deviation 44.2 RDW Coeff of Rosi 16.8 H Plt Count 274 MPV 10.0 PT INR APTT PTT Ratio POC Sodium Sodium POC Potassium Potassium POC Chloride Chloride Carbon Dioxide POC Total CO2 Anion Gap POC Anion Gap POC BUN BUN Creatinine POC Creatinine Est Cr Clr Drug Dosing eGFR BUN/Creatinine Ratio Glucose POC Glucose (other) Calcium POC Ioniz Calcium Christie Magnesium Total Bilirubin AST ALT Alkaline Phosphatase Troponin I High Sens Total Protein Albumin Globulin Albumin/Globulin Ratio HCG, Qual Anaplasma Smear Babesia Smear Lyme Disease Screen Lyme Tier 2 IgG Confirm Lyme Tier 2 IgM Confirm PG Care Time/CCT Total # of Minutes Spent Total Time Spent with Patient: Total time spent is greater than 50% in coordination of care (as documented) at patient's floor/unit and/or counseling patient: Coding Level of Care Code 84102 SUB INP/OBS CARE 2/35MIN Diagnoses Left upper extremity numbness R20.0 Complicated migraine G43.109 Time Spent (min) 35
[2025-02-10] MEDS ORDERED: VANCOMYCIN CONSULT ACTIVE PRN (16:05)
[2025-02-10] MEDS ORDERED: AMPICILLIN 250 MG in SODIUM CHLORIDE 0.9% 50 ML IV SCH (16:15)
[2025-02-10] MEDS ORDERED: VANCOMYCIN HCL / NSS 1,000 MG/270 ML BAG IV SCH (16:15)
[2025-02-10] MEDS: cefTRIAXone SODIUM 2,000 MG/50 ML BAG IV SCH (18:49)
[2025-02-10] MEDS: AMPICILLIN 2,000 MG in SODIUM CHLOR 0.9% MINI-B 100 ML IV SCH (18:50)
[2025-02-10] MEDS: BUTALBITAL/ACETAMIN/CAFFEINE TAB PO STA (18:52)
[2025-02-10] MEDS ORDERED: Nursing to Pharmacy Communication SCH (19:30)
[2025-02-10] MEDS: VANCOMYCIN HCL 1,500 MG in SODIUM CHLORIDE 0.9% 500 ML IV ONE (19:33)
[2025-02-11] MEDS: VANCOMYCIN 750 MG in SODIUM CHLORIDE 0.9% 250 ML IV SCH (04:27)
[2025-02-11 06:20] LABS: Hematocrit (blood only) 25.1 % (37.0-47.0); Hemoglobin 7.9 g/dl (12.0-16.0); Mean Corpuscular Hemoglobin 23.0 pg (25.0-34.0); Mean Corpuscular Volume 73.2 fL (80.0-100.0); Platelet Count 257 K/uL (130-400); RDW Standard Deviation 44.4 fL (36.4-46.3); Red Blood Count 3.43 M/uL (4.20-5.40); White Blood Count 8.62 K/ul (4.8-10.8)
[2025-02-11 06:51] LABS: Alanine Aminotransferase 111.0 U/L (7-52); Albumin Globulin Ratio 1.3 (0.9-2); Alkaline Phosphatase 83.0 U/L (34-104); Anion Gap 6.0 (3-11); Bilirubin,Total 0.4 mg/dl (0.2-1.0); Blood Urea Nitrogen 12.0 mg/dl (6-23); Calcium 8.0 mg/dl (8.6-10.3); Carbon Dioxide 25.0 mmol/L (21-32); Chloride 109.0 mmol/L (98-107); Creatinine Clr Calc Pharmacy 133.9 ml/min; Globulin 2.5 gm/dl (2.5-4.0); Glucose 94.0 mg/dl (70-99(Fasting)); Potassium 3.7 mmol/L (3.5-5.1); Sodium 140.0 mmol/L (136-145); Total Protein 5.8 gm/dl (6.0-8.3)
--- NOTE | 2025-02-11 08:38 | Pharmacy Report ---
Pharmacy PK ABX Note - Date of Service February 11, 2025 - Assessment and Plan Assessment 34 y/o F with PMHx of migraines who comes to the ED after experiencing progressively worsening headaches since 02/04. Brain MRI and CTA negative, however, around 3:30pm on 02/10/2025 she spiked fever of 38.8, started on IV Vancomycin, Ampicillin, Ceftriaxone, also on Doxycycline PO for Lymes, patient did report hiking, but no known direct tick exposure, Lyme IgM positive, Lyme IgG negative. Anaplasmosis and babesiosis smear negative, with antibodies pending. Blood & urine cultures pending. ID consulted. Neurology notified, suspect she needs Lumbar puncture. Day # 2 of antimicrobial therapy. Plan Vancomycin * Loading dose: 1500 mg IV x 1 * Maintenance dose: 750 mg IV every 8 hours * Regimen is predicted to achieve target AUC/DYLAN of 400-600 mg/L.hr * Trough level ordered for: 02/12/25 at 0330 Pharmacy will continue to follow and will adjust dose/frequency as necessary. Thank you. Pharmacy has transitioned to AUC monitoring for vancomycin. AUC/DYLAN is the preferred PK/PD target and is associated with decreased risk of nephrotoxicity compared to traditional trough targets.
--- NOTE | 2025-02-11 09:57 | Neurology Consultation ---
Date of Consultation February 11, 2025 Assessment & Plan (1) Headache: History of Present Illness Attending Physician: Christ Stephens DO History of Present Illness S: pt this morning dull headache with still feeling little warm but improved. neck pain persist but tolerating. chart reviewed. mri brain negative. CTA head/neck negative. MRI C spine with lost cervical lordosis and C5/6 DDD but no clear root impingement. admission HPI: Patient is a 34 y/o F with PMHx of migraines who comes to the ED after experiencing progressively worsening headaches since 02/04. The day after her headache appeared, she developed nausea and on 02/06 started to develop some neck tightness along with her headache. Sxs persisted and on 02/07-02/08 she started to experience pain in her left shoulder that was achy and felt like shooting down her arm sometimes, numbness down her left arm and then developed weakness in her left arm. Sxs always accompanied by headaches. Sxs more bothersome with start of menses on 02/05-02/06. Not currently on hormonal methods of contraception. Denies trauma, hx of surgical intervention, or other preceding/precipitating events. No fevers, chills, chest pain, SOB/EDWARDS, or other systemic sxs. Allergies Allergy/AdvReac Type Severity Reaction Status Date / Time No Known Allergies Allergy Unverified 02/09/25 20:16 Home Medications Medication Instructions Recorded Confirmed Type No Known Home Medications 02/09/25 02/09/25 History Patient History Social History Smoking Status: Never smoker Tobacco Type: Cigarettes Hx Alcohol Use: Yes Hx Substance Use: No Preferred Language: Wallisian Communication Ability: Effective Manager Acute Required: No Beliefs That Will Affect Care: None Current Living Situation: Significant Other Other Information That Helps Us Care for You: No Feels Safe at Home: Yes Safety Concerns: Feels Safe At This Time Assistive Devices: None Exam (Neuro) Physical Exam: HEENT: normocephalic grossly Neuro: Mental: AOx4, fluent speech, normal comprehension, no apraxia, no L/R confusion, no neglect CN: PERRL, Full EOM, symmetric face, midline T/U/P, grossly full ROM neck Motor: No abnormal movements, normal tone, 5/5 t/o bilaterally Sens: intact to touch b/l grossly Coord: intact DTR: 2+ sym b/l Impression: 34 yo female with acute headache with neck pain and fever, concerning for possible viral/aseptic meningitis. Recommendations: pt already on broad spectrum antibiotics ID consultation for CSF study work up for infection panel routine headache management as now with IV hydration (pt states current regiment is working and does not need change in med for her headache). not much to add from neurology call again if new question. Chart reviewed I have spent more than 50% educating patient about potential diagnosis and neurological evaluation and coordinating care with patient's treatment team. Total time spent (including chart review and coordination of care): 45 min (this includes chart review). Results & Data Vital Signs (Past 12 Hours) Vital Signs Temp Pulse Resp BP BP Pulse Ox O2 Del Method 02/11/25 08:51 36.8 C 71 16 107/69 99 Room Air 02/10/25 22:22 37.0 C 83 16 103/64 98 Room Air PG Care Time/CCT Total # of Minutes Spent Total Time Spent with Patient: Total time spent is greater than 50% in coordination of care (as documented) at patient's floor/unit and/or counseling patient: Coding Level of Care Code 65812 IN/OBS CONSULT LVL 3,45M Diagnoses Other headache syndrome G44.89 Headache type: other headache syndrome (1) Headache Headache type: other headache syndrome Qualified Code(s): G44.89 - Other headache syndrome
--- NOTE | 2025-02-11 10:58 | Infectious Disease Consult ---
Date of Consultation February 11, 2025 Assessment & Plan (1) Complicated migraine: (2) Left arm weakness: (3) Neck pain: (4) Headache: (5) Left upper extremity numbness: Plan This is a 35-year-old female with a past medical history of migraines who presents to the ED on 02/09/2025 who presents with progressive headaches since 02/04/2025. She also endorsed left upper extremity numbness and neck pain. Headaches began on 02/04/2025 with nausea. She then developed diffuse neck pain and left upper extremity numbness, weakness and left shoulder pain that progressed prompting presentation to the ED. Her symptoms worsened with initiation of her menses. She complained of chest pain and shortness of breath. She denied fever or chills. In the ED she was febrile with a TM of 38.8. Labs: WBC 7.6, hemoglobin 9.9, platelets 335, BUN 13, creatinine 0.59, AST 45--> 84, ALT 50--> 111. Lyme screen equivocal. Lyme IgG negative, IgM positive. Anaplasma smear with no evidence of intracytoplasmic neutrophil inclusions to suggest anaplasmosis. Babesia smear negative. CT head showed no acute findings. CTA head with no definite stenosis or aneurysm of the intracranial arteries. CTA neck with no definitive stenosis of the neck arteries. CTA chest with no evidence of pulmonary embolism. MRI brain with no acute ischemia, space-occupying mass or other intracranial pathology seen. No DVT of the left upper extremity. CTA PE with no acute findings. Given her fever and headaches she was started empirically on [employer] antibiotic coverage with ceftriaxone, ampicillin, vancomycin. She was started on doxycycline for possible Lyme disease. She underwent an LP this a.m. Results pending. ID consulted for fever, headache, left-sided weakness. An E consult without video evaluation completed as video/camera is not working today. History obtained from chart review. Microbiology: 02/09/2025 Anaplasma smear 02/09/2025 babesiosis smear negative 02/09/2025 Babesia PCR pending 02/09/2025 Lyme screen equivocal, Lyme IgG negative, Lyme IgM positive 02/10/2025 blood culture NGTD 02/11/2025 CSF culture in process 02/11/2025 CSF fluid studies in process Antibiotics: Ampicillin /current vancomycin /current Ceftriaxone 9/10current Doxycycline 9/10current # Headaches, fever: Rule out [employer] infection/meningitis # Possible Lyme disease # Transaminitis Discussion: Given her headache, fever, neurologic symptoms, agree with empiric coverage for potential [employer] infection. She was covered empirically for bacterial etiologies. Viral etiology such as HSV 1/2/VZV are also possible, so I will add IV acyclovir pending CSF results. She has an equivocal Lyme screen with a positive IgM, negative IgG. She has been started on oral doxycycline for possible Lyme disease . Ceftriaxone which she is on for [employer] coverage will also cover. Anaplasma and babesiosis smear is negative .Babesia PCR pending. Recommendations: Continue empiric [employer] bacterial coverage with ceftriaxone 2 g IV every 12 hours, vancomycin per pharmacy protocol, ampicillin 2 g IV every 4 hours (although Listeria meningitis is less likely given her age) Started Acyclovir 10 mg/kg IV every 8 hours for coverage of aseptic meningitis secondary to HSV or VZV, pending meningitis/encephalitis PCR results for HSV 1/2, VZV. Follow-up CSF studies including cell count with differential,glucose, protein, meningitis/encephalitis PCR, West Nile IgG/IgM, VDRL, Lyme immunoblot, CSF culture Continue doxycycline 100 mg p.o. twice daily pending Anaplasma/Ehrlichia PCR. -Follow-up serum Babesia PCR -Ordered Anaplasma/Ehrlichia PCR,if negative, will dc doxycycline as ceftriaxone also covers Lyme disease. Ordered HIV 1/2 Ag/ab. Ordered syphilis antibody with reflex RPR Thank you for this consult. ID will continue to follow. Rikki Nazario MD, MPH Infectious Disease [facility] Call [phone] with questions Consultation Information This patient recommendation is based on a telemedicine consult request which was completed asynchronously through chart review and information provided by the primary physician. The patient was not seen or examined today. The evaluation is consultative in nature and all patient care and treatment decisions can either be accepted or rejected by the patient's primary hospital-based treating physician using their own independent medical judgment for their patient. Field Map Editor contact information: Please call [facility] Center [phone]. (Phone Number For Physician Use Only) Time Spent Reviewing Chart: 31+ minutes History of Present Illness Reason for Consultation: Headache fever, LUE numbness Requesting Physician: Crhist Stephens DO Attending Physician: Christ Stephens DO History of Present Illness This is a 35-year-old female with a past medical history of migraines who presents to the ED on 02/09/2025 who presents with progressive headaches since 02/04/2025. She also endorsed left upper extremity numbness and neck pain. Headaches began on 02/04/2025 with nausea. She then developed diffuse neck pain and left upper extremity numbness, weakness and left shoulder pain that progressed prompting presentation to the ED. Her symptoms worsened with initiation of her menses. She complained of chest pain and shortness of breath. She denied fever or chills. In the ED she was febrile with a TM of 38.8. Labs: WBC 7.6, hemoglobin 9.9, platelets 335, BUN 13, creatinine 0.59, AST 45--> 84, ALT 50--> 111. Lyme screen equivocal. Lyme IgG negative, IgM positive. Anaplasma smear with no evidence of intracytoplasmic neutrophil inclusions to suggest anaplasmosis. Babesia smear negative. CT head showed no acute findings. CTA head with no definite stenosis or aneurysm of the intracranial arteries. CTA neck with no definitive stenosis of the neck arteries. CTA chest with no evidence of pulmonary embolism. MRI brain with no acute ischemia, space-occupying mass or other intracranial pathology seen. No DVT of the left upper extremity. CTA PE with no acute findings. Given her fever and headaches she was started empirically on [employer] antibiotic coverage with ceftriaxone, ampicillin, vancomycin. She was started on doxycycline for possible Lyme disease. She underwent an LP this a.m. Results pending. ID consulted for fever, headache, left-sided weakness. An E consult without video evaluation completed as video/camera is not working today. History obtained from chart review. Allergies Allergy/AdvReac Type Severity Reaction Status Date / Time No Known Allergies Allergy Unverified 02/09/25 20:16 Home Medications Medication Instructions Recorded Confirmed Type No Known Home Medications 02/09/25 02/09/25 History Patient History Social History Smoking Status: Never smoker Tobacco Type: Cigarettes Hx Alcohol Use: Yes Hx Substance Use: No Preferred Language: Icelandic Communication Ability: Effective Ticket Broker Required: No Beliefs That Will Affect Care: None Current Living Situation: Significant Other Other Information That Helps Us Care for You: No Feels Safe at Home: Yes Safety Concerns: Feels Safe At This Time Assistive Devices: None Results & Data Vital Signs (Past 12 Hours) Vital Signs Temp Pulse Resp BP Pulse Ox O2 Del Method 02/11/25 08:51 36.8 C 71 16 107/69 99 Room Air Laboratory Results Laboratory Results - last 48 hr 02/09/25 02/09/25 02/09/25 17:45 18:08 23:56 WBC 7.60 RBC 4.39 Hgb 9.9 L POC Hgb 9.2 L Hct 32.4 L POC Hct 27 L MCV 73.8 L MCH 22.6 L MCHC 30.6 L RDW Std Deviation 45.3 RDW Coeff of Rosi 16.9 H Plt Count 335 MPV 9.6 PT 10.9 INR 1.0 APTT 27 PTT Ratio 1.0 POC Sodium 139 Sodium 139 POC Potassium 3.6 Potassium 3.6 POC Chloride 103 Chloride 103 Carbon Dioxide 26 POC Total CO2 23 L Anion Gap 10 POC Anion Gap 18.0 POC BUN 12 BUN 13 Creatinine 0.59 L POC Creatinine 0.6 Est Cr Clr Drug Dosing 113.7 eGFR 121.21 BUN/Creatinine Ratio 22.0 H Glucose 127 H POC Glucose (other) 122 H Calcium 9.5 POC Ioniz Calcium Christie 1.20 Magnesium 2.1 Total Bilirubin 0.4 AST 45 H ALT 50 Alkaline Phosphatase 78 Troponin I High Sens < 2.3 Total Protein 8.4 H Albumin 4.5 Globulin 3.9 Albumin/Globulin Ratio 1.2 HCG, Qual Negative Fluid Comment Anaplasma Smear See Comment Babesia Smear See Comment Lyme Disease Screen Equivocal H Lyme Tier 2 IgG Confirm Negative Lyme Tier 2 IgM Confirm Positive H 02/10/25 02/11/25 02/11/25 15:09 05:24 10:43 WBC 8.70 8.62 RBC 4.34 3.43 L Hgb 9.7 L 7.9 L POC Hgb Hct 31.7 L 25.1 L POC Hct MCV 73.0 L 73.2 L MCH 22.4 L 23.0 L MCHC 30.6 L 31.5 L RDW Std Deviation 44.2 44.4 RDW Coeff of Rosi 16.8 H 16.7 H Plt Count 274 257 MPV 10.0 10.4 PT INR APTT PTT Ratio POC Sodium Sodium 140 POC Potassium Potassium 3.7 POC Chloride Chloride 109 H Carbon Dioxide 25 POC Total CO2 Anion Gap 6 POC Anion Gap POC BUN BUN 12 Creatinine 0.50 L POC Creatinine Est Cr Clr Drug Dosing 133.9 eGFR 126.14 BUN/Creatinine Ratio 24.0 H Glucose 94 POC Glucose (other) Calcium 8.0 L POC Ioniz Calcium Christie Magnesium Total Bilirubin 0.4 AST 84 H ALT 111 H Alkaline Phosphatase 83 Troponin I High Sens Total Protein 5.8 L D Albumin 3.3 L Globulin 2.5 Albumin/Globulin Ratio 1.3 HCG, Qual Fluid Comment Anaplasma Smear Babesia Smear Lyme Disease Screen Lyme Tier 2 IgG Confirm Lyme Tier 2 IgM Confirm Diagnostic Findings Head CT 02/09/25 17:11 Clinical History: Possible stroke. Technique: Axial computed tomography images were obtained of the brain from the vertex to the skull base without intravenous contrast. Findings: There is no sign of intracranial hemorrhage. There is normal moya-white matter differentiation with no sign of acute or old infarction. No midline shift or other form of herniation is identified. There is no hydrocephalus. There is calcification in the left lentiform nucleus No obvious mass lesion is seen on this noncontrast examination. The visualized portions of the orbits and paranasal sinuses appear unremarkable. The mastoid air cells appear clear Impression: Unremarkable noncontrast CT of the brain Electronically signed by Brayden Fine 02-09-2025 5:57 PM Head CTA 02/09/25 18:14 Clinical history: Headache Technique: Axial computed tomography images were obtained of the brain after the administration of intravenous contrast according to the CT angiogram protocol Findings: There is calcification within the left lentiform nucleus No definite stenosis or aneurysm is seen of the anterior, middle, or posterior cerebral artery circulations. The visualized vertebral arteries and the basilar artery appear unremarkable Impression: No definite stenosis or aneurysm of the intracranial arteries Electronically signed by Brayden Fine 02-09-2025 7:10 PM Neck CTA 02/09/25 18:14 Clinical history: Neck pain Technique: Axial computed tomography images were obtained of the neck after the administration of intravenous contrast according to the CT angiogram protocol Findings: No stenosis is seen of the common carotid arteries bilaterally. The carotid bulbs appear normal. The remainder of the internal carotid arteries appear patent bilaterally. No stenosis of the external carotid arteries is seen The vertebral arteries are patent bilaterally with no significant stenosis seen. The visualized thoracic aorta appears unremarkable Impression: No definite stenosis of the neck arteries Electronically signed by Brayden Fine 02-09-2025 7:14 PM Chest CTA 02/09/25 18:17 CT pulmonary angiogram with IV contrast History: Chest pain COMPARISON: None TECHNIQUE: CT angiography of the chest was performed without IV contrast followed by IV contrast, including 3D post processing CTA image reconstruction. Dose reduction techniques were achieved by using automatic exposure control and/or adjustment of mA and/or kV according to patient size and/or use of iterative reconstruction technique. FINDINGS: Diagnostic quality: Adequate There is no evidence for pulmonary embolism. The heart is not enlarged. There is no pericardial effusion. There are no abnormally enlarged hilar or mediastinal lymph nodes. The central tracheobronchial tree is clear. The lungs are clear. There is no pleural effusion. Limited visualized upper abdomen. No destructive osseous changes are seen. IMPRESSION: No evidence for pulmonary embolism. Electronically signed by Mao Godoy 02-09-2025 7:18 PM Cervical Spine MRI 02/09/25 19:27 Exam(s): MRI C SPINE EXAM: MR Cervical Spine Without Intravenous Contrast CLINICAL HISTORY: Reason for exam: neck pain, L arm numbness/pain. TECHNIQUE: Magnetic resonance images of the cervical spine without intravenous contrast in multiple planes. COMPARISON: No relevant prior studies available. FINDINGS: Vertebrae: Unremarkable. No acute fracture. Spinal cord: See below. Soft tissues: Unremarkable. DISCS/SPINAL CANAL/NEURAL FORAMINA: C2-C3: Unremarkable. No significant disc disease. No stenosis. C3-C4: Unremarkable. No significant disc disease. No stenosis. C4-C5: Unremarkable. No significant disc disease. No stenosis. C5-C6: Broad-based posterior disc bulge at C5-C6 resulting in mild effacement of the anterior epidural space without significant canal or foraminal stenosis. No cord signal abnormality. C6-C7: Unremarkable. No significant disc disease. No stenosis. C7-T1: Unremarkable. No significant disc disease. No stenosis. IMPRESSION: No acute findings in the cervical spine. Electronically signed by: Bryan Holguin MD 02/09/25 22:12 PM Brain MRI 02/10/25 00:07 EXAM: MR brain wo con CLINICAL HISTORY: Weakness TECHNIQUE: Multisequential and multiplanar images of the brain were submitted for review without contrast. COMPARISON: none FINDINGS: The brain shows normal morphology, signal intensity, and volume for age. No focal parenchymal lesions are seen. No intracranial hemorrhage, mass effect, midline shift, extra-axial collection, or hydrocephalus is identified. Ventricles, sulci, and basal cisterns are symmetric and normal in size and configuration. Diffusion-weighted sequences show no evidence of acute ischemic infarction. Midline structures including the pituitary gland, corpus callosum, pineal region, and brainstem are unremarkable. The craniovertebral junction is within normal limits. No calvarial abnormalities are identified. The paranasal sinuses and mastoid air cells are clear. Orbital structures are unremarkable. Appropriate flow voids are present in the visualized intracranial vessels. IMPRESSION: 1. No acute ischemia, space occupying mass, or other acute intracranial pathology is demonstrated. Electronically signed by Catracho Can 02-10-2025 12:52 AM Extremity Venous Study 02/10/25 12:45 ULTRASOUND LEFT UPPER EXTREMITY VENOUS CLINICAL HISTORY: Acute pain and swelling of the left arm. COMPARISON STUDY: None. TECHNIQUE: Real-time, grayscale, and color Doppler sonography of the deep veins of the left upper extremity is performed. Compression and augmentation were utilized. FINDINGS: There is no sonographic evidence of deep venous thrombosis identified in the left upper extremity. The left internal jugular, axillary, and brachial veins are patent and normally compressible. Normal venous waveforms and augmentation are seen within the left subclavian vein. The cephalic and basilic veins are not well-visualized. The visualized radial and ulnar veins are patent. IMPRESSION: There is no sonographic evidence of deep venous thrombosis identified in the left upper extremity. ACT 112: Negative or not required by law. Electronically signed by: Chris Morley M.D. 02/10/2025 2:44 PM Abdomen/Pelvis CT 02/10/25 14:16 CT abdomen pelvis wo/w con CLINICAL HISTORY: anemia, r/o abdominal mass COMPARISON STUDY: None FINDINGS: There is a very small left pleural effusion at the left base versus oblong pericardial cyst. Vascular findings: There is no abdominal aortic aneurysm or dissection. No aortic luminal narrowing. Mesenteric and renal arteries are widely patent. Visualized arterial outflow is widely patent. No evidence of hematoma or active bleeding seen. ABDOMEN: Liver and spleen have heterogeneous enhancement, likely due to arterial phase exam. Otherwise liver, spleen, gallbladder, pancreas, and adrenal glands are unremarkable. Kidneys show no hydronephrosis or calculi. Pelvis: Uterus and adnexa are grossly unremarkable. Urinary bladder is nondistended. No bowel inflammation or obstruction seen. There is moderate retained stool. No free fluid, free air, or abscess. No enlarged adenopathy. No abdominal or pelvic mass seen. Osseous structures: No acute osseous findings. IMPRESSION: No acute findings. ACT 112: Negative or not required by law. Electronically signed by: Chris Huff M.D. 02/10/2025 3:11 PM Chest CTA 02/10/25 14:16 CT angio chest dissec wo/w con HISTORY: 34 years-old Female with headache, left arm numbess, and pain. Acute chest pain without a TECHNIQUE: Multiple CTA images of the chest were obtained before and after the intravenous administration of 115 ml Optiray. Coronal and sagittal MIPS were obtained from the axial data set and were submitted for review. All measurements were obtained according to NASCET criteria. A dose lowering technique was utilized adhering to the principles of ALARA. COMPARISON: CT abdomen and pelvis of same day, CTA chest 02/09/2025 FINDINGS: CTA: There is adequate opacification of the pulmonary arteries to the level of the segmental branches without convincing evidence of acute pulmonary embolism. Normal thoracic aorta without aneurysm, dissection, intramural hematoma or atherosclerosis.Heart size is normal. CT CHEST: No dominant thyroid nodule is seen. Small amount of residual thymic tissue noted within the anterior mediastinum. No pathologically adenopathy by CT size criteria. Trace pleural effusions. Minimal linear subsegmental atelectasis versus scarring again noted within the inferior segment lingula. There is no pneumothorax, or focal airspace consolidation. Cystic structure within the left lower chest redemonstrated on image 213 measuring 10.5 x 3.8 cm. The imaged upper abdominal structures demonstrate no acute abnormality. Heterogeneity of the liver is nonspecific and may be secondary to phase of postcontrast imaging. The osseous structures appear intact. IMPRESSION: 1. Unremarkable CTA of the chest. 2. Trace pleural effusions. 3. Probable pericardial cyst redemonstrated measuring 10 cm. ACT 112: Negative or not required by law. The above report was generated using voice recognition software. It may contain grammatical, syntax or spelling errors. Electronically signed by: Chris Morley M.D. 02/10/2025 3:27 PM Medications Administered Home Medications Medication Instructions Recorded Confirmed Last Taken No Known Home Medications 02/09/25 02/09/25 Unknown Active Medications Generic Name Dose Route Start Last Admin Trade Name Freq PRN Reason Stop Dose Admin Acetaminophen 1,000 mg 02/10/25 00:15 02/11/25 06:07 Acetaminophen 500 Mg Tab PO 03/12/25 00:14 1,000 mg Q8 MINERVA Administration Doxycycline Hyclate 100 mg 02/10/25 09:00 02/11/25 08:13 Doxycycline Hyclate 100 Mg Cap PO 02/20/25 08:59 100 mg BID MINERVA Administration Ceftriaxone Sodium 2,000 mg in 50 mls @ 100 mls/hr 02/10/25 16:30 02/11/25 04:22 Rocephin IV 02/20/25 16:29 Infused Q12H MINERVA Infusion Ampicillin Sodium 2,000 mg/ 100 mls @ 200 mls/hr 02/10/25 16:45 02/11/25 06:37 Sodium Chloride IV 02/20/25 16:44 Infused Q4H MINERVA Infusion Sodium Chloride 1,000 mls @ 125 mls/hr 02/10/25 17:30 02/11/25 03:52 Nss IV 02/13/25 17:29 125 mls/hr .Q8H MINERVA Administration Vancomycin HCl 750 mg/ Sodium 265 mls @ 200 mls/hr 02/11/25 04:00 02/11/25 05:47 Chloride IV 02/21/25 03:59 Infused Q8H MINERVA Infusion Ondansetron HCl 4 mg 02/10/25 14:53 02/10/25 14:59 Ondansetron Inj 2 Mg/Ml 2 Ml Vial IV 03/12/25 14:52 4 mg Q6H PRN Administration Nausea And Vomiting (4) Headache Headache type: other headache syndrome Qualified Code(s): G44.89 - Other headache syndrome
[2025-02-11 11:11] LABS: CSF Count Tube # 3; CSF Xanthrochromic No xanthochromia; Mononuclear WBC CSF Auto 6.6 %; Polynuclear WBC CSF Auto 93.4 %; Red Blood Cell CSF Manual 0 (0); White Blood Cell CSF Auto 45 /uL (0-5)
[2025-02-11 11:26] LABS: CSF Specific Gravity 1.005 (1.006-1.008)
--- NOTE | 2025-02-11 12:20 | Hospitalist Progress Note ---
Date of Service February 11, 2025 Assessment & Plan (1) Left upper extremity numbness: (2) Complicated migraine: Plan Patient is a 34 y/o F with PMHx of migraines who comes to the ED after experiencing progressively worsening headaches since 02/04. her brain MRI and CTA negative however, around 3:30pm on 02/10/2025; she spike fever of 38.8 check blood culture, fever episode she s/p LP on (02/11), show elevated WBC of 45 ceftriaxone, vancomycin, ampicillin, acyclovir, ID notified deposition discharge more than 48 hours away pericardial cyst f/u on echocardiogram (L) UE weakness Hx migraines - Head CT, Head CTA, Neck CTA, and Chest CTA all unremarkable - C-spine MRI showing broad-based posterior disc bulge at C5-C6 resulting in mild effacement of the anterior epidural space without significant canal or foraminal stenosis. Low suspicion for this being the cause given exam findings and distribution of sxs. - Given that symptoms were only present when she was experiencing headaches, and given her known hx of migraines, believe that current presentation may be due to complicated migraines. - Admit to Med/Surg - MRI brain ordered - Pain control with Tylenol jeffrey, as well as Toradol for breakthrough pain, and if MRI unremarkable, can add Sumatriptan which she could continue to use for abortive therapy after discharge - LR @ 100 ml/hr - Would encourage establishing with PCP for routine f/u and for monitoring of her migraines Diet: Regular Pain Control: Tylenol jeffrey, Toradol for breakthrough pain; can add Sumatriptan if MRI brain unremarkable VTE ppx: Ambulation Code Status: FULL Admission and Anticipated Discharge Date Admission Date: February 11, 2025 Subjective she s/p LP at 11:30am and spinal fluid show high WBC of 45 still have neck pain, no worsening headache; no numbness currently, she's on ceftriaxone, vancomycin, ampicillin and acyclovir ID notified she's has pericardial cysts on CTA chest, plan for echo to further eval for murmur Review of Systems Review of Systems: Constitutional: No Weight Change; + for fever. Cardiovascular: No Chest Pain, No SOB, No PND, No Dyspnea on Exertion, No Orthopnea, No Claudication, No Edema, No Palpitations Respiratory: No Cough, No Sputum, No Wheezing, No Smoke Exposure, No Dyspnea Gastrointestinal: No Nausea, No Vomiting, No Diarrhea, No Constipation, No Pain, No Heartburn, No Anorexia, No Dysphagia, No Hematochezia, No Melena, No Flatulence, No Jaundice Genitourinary: No Dysmenorrhea, No DUB, No Dyspareunia, No Dysuria, No Urinary Frequency, No Hematuria, No Urinary Incontinence, No Urgency, No Flank Pain, No Urinary Flow Changes, No Hesitancy Skin: No Skin Lesions, No Pruritis, Neuro: + for headache; left side weakness; + for neck pain Physical Exam Physical Exam: VITALS: Reviewed. WEIGHT/BMI reviewed. GEN: Healthy appearing, well-developed, NAD. -Head: NC/AT; neck tender to palpation -Mouth and throat: MMM. Normal gums, muc colby, palate,. Good dentition. NECK: Supple, with no masses. CV: RRR, no m/r/g. LUNGS: CTAB, no w/r/c. ABD: Soft, NT/ND, NBS, no masses or organomegaly. skin: multiple tattoo on the body MSK: No deformities, Normal gait. EXT: No clubbing, cyanosis, or edema. NEURO: AAOx3 Results & Data Results & Data Vital Signs (Past 12 Hours) Vital Signs Temp Pulse Resp BP Pulse Ox O2 Del Method 02/11/25 12:04 36.7 C 56 L 16 103/62 100 Room Air 02/11/25 11:50 36.9 C 73 24 111/63 99 Room Air 02/11/25 08:51 36.8 C 71 16 107/69 99 Room Air Laboratory Results Laboratory Results - last 72 hr 02/09/25 02/09/25 02/09/25 17:45 18:08 23:56 WBC 7.60 RBC 4.39 Hgb 9.9 L POC Hgb 9.2 L Hct 32.4 L POC Hct 27 L MCV 73.8 L MCH 22.6 L MCHC 30.6 L RDW Std Deviation 45.3 RDW Coeff of Rosi 16.9 H Plt Count 335 MPV 9.6 PT 10.9 INR 1.0 APTT 27 PTT Ratio 1.0 POC Sodium 139 Sodium 139 POC Potassium 3.6 Potassium 3.6 POC Chloride 103 Chloride 103 Carbon Dioxide 26 POC Total CO2 23 L Anion Gap 10 POC Anion Gap 18.0 POC BUN 12 BUN 13 Creatinine 0.59 L POC Creatinine 0.6 Est Cr Clr Drug Dosing 113.7 eGFR 121.21 BUN/Creatinine Ratio 22.0 H Glucose 127 H POC Glucose (other) 122 H Calcium 9.5 POC Ioniz Calcium Christie 1.20 Ionized Calcium Magnesium 2.1 Total Bilirubin 0.4 AST 45 H ALT 50 Alkaline Phosphatase 78 Troponin I High Sens < 2.3 Total Protein 8.4 H Albumin 4.5 Globulin 3.9 Albumin/Globulin Ratio 1.2 HCG, Qual Negative Fluid Comment CSF Appearance CSF Color Xanthrochromic CSF Specific [place] CSF WBC (Auto) CSF RBC CSF Cell Count Tube # CSF Mononuclear % Auto CSF Polynuclear WBCs CSF Chemistry Tube # CSF Glucose CSF Total Protein Anaplasma Smear See Comment Babesia Smear See Comment Lyme Disease Screen Equivocal H Lyme Tier 2 IgG Confirm Negative Lyme Tier 2 IgM Confirm Positive H 02/10/25 02/11/25 02/11/25 15:09 05:24 10:43 WBC 8.70 8.62 RBC 4.34 3.43 L Hgb 9.7 L 7.9 L POC Hgb Hct 31.7 L 25.1 L POC Hct MCV 73.0 L 73.2 L MCH 22.4 L 23.0 L MCHC 30.6 L 31.5 L RDW Std Deviation 44.2 44.4 RDW Coeff of Rosi 16.8 H 16.7 H Plt Count 274 257 MPV 10.0 10.4 PT INR APTT PTT Ratio POC Sodium Sodium 140 POC Potassium Potassium 3.7 POC Chloride Chloride 109 H Carbon Dioxide 25 POC Total CO2 Anion Gap 6 POC Anion Gap POC BUN BUN 12 Creatinine 0.50 L POC Creatinine Est Cr Clr Drug Dosing 133.9 eGFR 126.14 BUN/Creatinine Ratio 24.0 H Glucose 94 POC Glucose (other) Calcium 8.0 L POC Ioniz Calcium Christie Ionized Calcium Magnesium Total Bilirubin 0.4 AST 84 H ALT 111 H Alkaline Phosphatase 83 Troponin I High Sens Total Protein 5.8 L D Albumin 3.3 L Globulin 2.5 Albumin/Globulin Ratio 1.3 HCG, Qual Fluid Comment CSF Appearance Clear CSF Color Colorless Xanthrochromic No xanthochromia CSF Specific [place] 1.005 L CSF WBC (Auto) 45 H* CSF RBC 0 CSF Cell Count Tube # 3 CSF Mononuclear % Auto 6.6 CSF Polynuclear WBCs 93.4 CSF Chemistry Tube # 1 CSF Glucose 58 CSF Total Protein 48.3 H Anaplasma Smear Babesia Smear Lyme Disease Screen Lyme Tier 2 IgG Confirm Lyme Tier 2 IgM Confirm 02/11/25 11:39 WBC RBC Hgb POC Hgb Hct POC Hct MCV MCH MCHC RDW Std Deviation RDW Coeff of Rosi Plt Count MPV PT INR APTT PTT Ratio POC Sodium Sodium POC Potassium Potassium POC Chloride Chloride Carbon Dioxide POC Total CO2 Anion Gap POC Anion Gap POC BUN BUN Creatinine POC Creatinine Est Cr Clr Drug Dosing eGFR BUN/Creatinine Ratio Glucose POC Glucose (other) Calcium POC Ioniz Calcium Christie Ionized Calcium 1.22 Magnesium Total Bilirubin AST ALT Alkaline Phosphatase Troponin I High Sens Total Protein Albumin Globulin Albumin/Globulin Ratio HCG, Qual Fluid Comment CSF Appearance CSF Color Xanthrochromic CSF Specific [place] CSF WBC (Auto) CSF RBC CSF Cell Count Tube # CSF Mononuclear % Auto CSF Polynuclear WBCs CSF Chemistry Tube # CSF Glucose CSF Total Protein Anaplasma Smear Babesia Smear Lyme Disease Screen Lyme Tier 2 IgG Confirm Lyme Tier 2 IgM Confirm PG Care Time/CCT Total # of Minutes Spent Total Time Spent with Patient: Total time spent is greater than 50% in coordination of care (as documented) at patient's floor/unit and/or counseling patient: Coding Level of Care Code 13688 SUB INP/OBS CARE 25MIN Diagnoses Left upper extremity numbness R20.0 Complicated migraine G43.109 Time Spent (min) 25
[2025-02-11 12:26] LABS: Cryptococcus neoformans/ga PCR Not Detected (NotDetected); Escherichia coli K1 PCR Not Detected (NotDetected); Haemophilius influenzae PCR Not Detected (NotDetected); Herpes Simplex Virus 1 PCR Not Detected (NotDetected); Herpes Simplex Virus 2 PCR Not Detected (NotDetected); Human Herpes Virus 6 PCR Not Detected (NotDetected); Human Parechovirus PCR Not Detected (NotDetected); Listeria monocytogenes PCR Not Detected (NotDetected); Neisseria meningitidis PCR Not Detected (NotDetected); Streptococcus agalactiae PCR Not Detected (NotDetected); Streptococcus pneumoniae PCR Not Detected (NotDetected)
--- NOTE | 2025-02-11 12:28 | Fluoroscopy Report ---
LUMBAR PUNCTURE CLINICAL HISTORY: Headache; fever PROCEDURE: Procedure and risks were explained. Informed consent was obtained. A final timeout was com pleted. The patient was placed prone on the fluoroscopic exam table. The lower lumbar region was prep ped and draped in sterile fashion. 1% lidocaine was utilized for skin anesthesia. Utilizing fluoroscopic guidance, a 22-gauge Sprotte spinal needle was advanced into the intrathecal s pace at the L3-4 disc space. Fluoroscopic spot images were obtained. Approximately 8 mL of clear CSF was removed and sent to the lab for analysis. The needle was removed and Band-Aid applied. The patien t tolerated the procedure well. Vital signs will be monitored postprocedure. Fluoroscopy time 1 seconds. Study dosed is 1.15 mGy. IMPRESSION: Lumbar puncture as above. Performed, dictated, and signed by Santino Granados PA-C; to be co-signed by Dr. Chris Huff. Electronically signed by: Chris Huff M.D. 02/11/2025 1:26 PM
[2025-02-11] MEDS: DEXTROSE 5% IV SCH (12:51)
[2025-02-11] MEDS: ACYCLOVIR SOD IV SCH (12:51)
--- NOTE | 2025-02-11 17:18 | XCELERA ---
[id number]
[2025-02-11] MEDS: MELATONIN 3 MG TAB PO ONE (21:52)
[2025-02-12] MEDS: KETOROLAC TROMETHAMINE 15 MG/ML VIAL IV ONE (00:45)
[2025-02-12] MEDS: KETOROLAC TROMETHAMINE 15 MG/ML VIAL ONE (01:00)
[2025-02-12] MEDS ORDERED: Nursing to Pharmacy Communication SCH (03:15)
[2025-02-12] MEDS: HYDROmorphone INJ 0.5 MG/0.5 ML SYR IV STA (03:20)
[2025-02-12] MEDS: VANCOMYCIN LEVEL ONE (03:30)
[2025-02-12 04:07] LABS: Hematocrit (blood only) 25.2 % (37.0-47.0); Hemoglobin 7.5 g/dl (12.0-16.0); Mean Corpuscular Hemoglobin 21.9 pg (25.0-34.0); Mean Corpuscular Volume 73.5 fL (80.0-100.0); Platelet Count 288 K/uL (130-400); RDW Standard Deviation 45.2 fL (36.4-46.3); Red Blood Count 3.43 M/uL (4.20-5.40); White Blood Count 4.54 K/ul (4.8-10.8)
[2025-02-12 04:32] LABS: Alanine Aminotransferase 85.0 U/L (7-52); Albumin Globulin Ratio 1.1 (0.9-2); Alkaline Phosphatase 80.0 U/L (34-104); Anion Gap 7.0 (3-11); Bilirubin,Total 0.2 mg/dl (0.2-1.0); Blood Urea Nitrogen 8.0 mg/dl (6-23); Calcium 8.2 mg/dl (8.6-10.3); Carbon Dioxide 22.0 mmol/L (21-32); Chloride 111.0 mmol/L (98-107); Creatinine Clr Calc Pharmacy 136.6 ml/min; Globulin 2.7 gm/dl (2.5-4.0); Glucose 98.0 mg/dl (70-99(Fasting)); Potassium 3.9 mmol/L (3.5-5.1); Sodium 140.0 mmol/L (136-145); Total Protein 5.8 gm/dl (6.0-8.3)
[2025-02-12] MEDS: LIDOCAINE 5% 1 PATCH TD STA (05:24)
--- NOTE | 2025-02-12 08:51 | Hospitalist Progress Note ---
Date of Service February 12, 2025 Assessment & Plan (1) Left upper extremity numbness: (2) Complicated migraine: Plan Patient is a 34 y/o F with PMHx of migraines who comes to the ED after experiencing progressively worsening headaches since 02/04. her brain MRI and CTA negative however, around 3:30pm on 02/10/2025; she spike fever of 38.8 check blood culture, acute meningitis symptoms of fever; headache and left arm pain she s/p LP on (02/11), show elevated WBC of 45 ceftriaxone, vancomycin, ampicillin, acyclovir, ID notified she currently on doxycycline ID team following her CSF lyme titer is still pending reviewed CSF fluid, so far, CSF HSV negative, VZV negative, S. pneumonia negative, L monocytogenes negative deposition 24-48 hours away cardiology should establish f/u with her pericardial cyst f/u on echocardiogram (L) UE weakness Hx migraines - Head CT, Head CTA, Neck CTA, and Chest CTA all unremarkable - C-spine MRI showing broad-based posterior disc bulge at C5-C6 resulting in mild effacement of the anterior epidural space without significant canal or foraminal stenosis. Low suspicion for this being the cause given exam findings and distribution of sxs. - Given that symptoms were only present when she was experiencing headaches, and given her known hx of migraines, believe that current presentation may be due to complicated migraines. - Admit to Med/Surg - MRI brain ordered - Pain control with Tylenol jeffrey, as well as Toradol for breakthrough pain, and if MRI unremarkable, can add Sumatriptan which she could continue to use for abortive therapy after discharge - LR @ 100 ml/hr - Would encourage establishing with PCP for routine f/u and for monitoring of her migraines Diet: Regular Pain Control: Tylenol jeffrey, Toradol for breakthrough pain; can add Sumatriptan if MRI brain unremarkable VTE ppx: Ambulation Code Status: FULL Admission and Anticipated Discharge Date Admission Date: February 11, 2025 Subjective she still has neck pain and left forearm pain f/u on echocardiogram she's still need IV antibiotics for meningitis treatment per no sick contact but significant tick bite she's been in ED multiple times for palpitation 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 WEIGHT/BMI reviewed. GEN: Healthy appearing, well-developed, NAD. PSYCH: Good Judgment. AOx3. Normal memory, mood, and affect. HEENT -Head: NC/AT; -Eyes: PERRL, EOMI. No discharge or redn ess; NECK: tender to palpation CV: RRR, no m/r/g. LUNGS: CTAB, no w/r/c. ABD: Soft, NT/ND, NBS, no masses or organomegaly. SKIN: tattoo MSK: No deformities, Normal gait. left shoulder has normal ROM; non-tender to palpitation EXT: No clubbing, cyanosis, or edema. NEURO: Ambulating with no limitations. Normal muscle strength and tone. No focal deficits. Results & Data Results & Data Vital Signs (Past 12 Hours) Vital Signs Temp Pulse Resp BP BP Pulse Ox O2 Del Method 02/12/25 07:37 36.3 C L 41 L 16 109/70 98 Room Air 02/12/25 00:04 62 16 106/61 97 Room Air 02/11/25 22:56 36.8 C 63 18 104/60 99 Room Air PG Care Time/CCT Total # of Minutes Spent Total Time Spent with Patient: Total time spent is greater than 50% in coordination of care (as documented) at patient's floor/unit and/or counseling patient: Coding Level of Care Code 30881 SUB INP/OBS CARE /25MIN Diagnoses Left upper extremity numbness R20.0 Complicated migraine G43.109 Time Spent (min) 25
[2025-02-12] MEDS: VANCOMYCIN HCL / NSS 1,000 MG/270 ML BAG IV SCH (09:43)
--- NOTE | 2025-02-12 11:24 | Pharmacy Report ---
Pharmacy PK ABX Note - Date of Service February 12, 2025 - Assessment and Plan Assessment 02/12: Day #3 vancomycin * Vanco level drawn this morning was 7.4mcg/mL which extrapolates to a subtherapeutic AUC/DYLAN. The maintenance dose of vancomycin has been increased. * LP completed 02/11, CSF culture is pending. Preliminary blood cultures x 2 from 02/10 are no growth to date. * Remains on empiric meningitis coverage and doxycycline for Lymes. 02/11: 34 y/o F with PMHx of migraines who comes to the ED after experiencing progressively worsening headaches since 02/04. Brain MRI and CTA negative, however, around 3:30pm on 02/10/2025 she spiked fever of 38.8, started on IV Vancomycin, Ampicillin, Ceftriaxone, also on Doxycycline PO for Lymes, patient did report hiking, but no known direct tick exposure, Lyme IgM positive, Lyme IgG negative. Anaplasmosis and babesiosis smear negative, with antibodies pending. Blood & urine cultures pending. ID consulted. Neurology notified, suspect she needs Lumbar puncture. Day # 2 of antimicrobial therapy. Plan Vancomycin * Vanco level drawn this morning was 7.4mcg/mL which extrapolates to an AUC of 382mg/L.hr * Increase maintenance dose to: 1000 mg IV every 8 hours * Regimen is predicted to achieve target AUC/DYLAN of 400-600 mg/L.hr * Trough level ordered for: 02/13/25 at 0900 Pharmacy will continue to follow and will adjust dose/frequency as necessary. Thank you. Pharmacy has transitioned to AUC monitoring for vancomycin. AUC/DYLAN is the preferred PK/PD target and is associated with decreased risk of nephrotoxicity compared to traditional trough targets.
--- NOTE | 2025-02-12 13:13 | Infectious Disease Progress Nt ---
Date of Service February 12, 2025 Assessment & Plan (1) Complicated migraine: (2) Left arm weakness: (3) Neck pain: (4) Headache: (5) Left upper extremity numbness: Plan This is a 35-year-old female with a past medical history of migraines who presents to the ED on 02/09/2025 who presents with progressive headaches since 02/04/2025. She also endorsed left upper extremity numbness and neck pain. Headaches began on 02/04/2025 with nausea. She then developed diffuse neck pain and left upper extremity numbness, weakness and left shoulder pain that progressed prompting presentation to the ED. Her symptoms worsened with initiation of her menses. She complained of chest pain and shortness of breath. She denied fever or chills. In the ED she was febrile with a TM of 38.8. Labs: WBC 7.6, hemoglobin 9.9, platelets 335, BUN 13, creatinine 0.59, AST 45--> 84, ALT 50--> 111. Lyme screen equivocal. Lyme IgG negative, IgM positive. Anaplasma smear with no evidence of intracytoplasmic neutrophil inclusions to suggest anaplasmosis. Babesia smear negative. CT head showed no acute findings. CTA head with no definite stenosis or aneurysm of the intracranial arteries. CTA neck with no definitive stenosis of the neck arteries. CTA chest with no evidence of pulmonary embolism. MRI brain with no acute ischemia, space-occupying mass or other intracranial pathology seen. No DVT of the left upper extremity. CTA PE with no acute findings. Given her fever and headaches she was started empirically on APPLIANCE MECHANIC antibiotic coverage with ceftriaxone, ampicillin, vancomycin. She was started on doxycycline for possible Lyme disease. She underwent an LP. ID consulted for fever, headache, left-sided weakness. An E consult without video evaluation completed as video/camera is not working today. History obtained from chart review. Microbiology: 02/09/2025 Anaplasma smear 02/09/2025 babesiosis smear negative 02/09/2025 Babesia PCR pending 02/09/2025 Lyme screen equivocal, Lyme IgG negative, Lyme IgM positive 02/10/2025 blood culture NGTD 02/11/2025 CSF culture NGTD 02/11/2025 CSF Meningitis/ encephalitis PCR negative for CMV, enterovirus, E. coli, H influenza, HSV 1/2, HHV, Listeria, Neisseria meningitidis, strep agalactiae, strep pneumonia, VZV, parechovirus 02/11/2025 CSF Lyme immunoblot pending 02/11/2025 CSF VDRL pending 02/11/2025 CSF crypto antigen pending 02/11/2025 CSF Borrelia Burgdorferi PCR pending 02/11/2025 CSF Borrelia Miyamotoi PCR pending 02/11/2025 CSF West Nile PCR pending 02/11/2025 serum TPPA negative 02/11/2025 Anaplasma PCR pending 02/11/2025 HIV 1/2 antigen antibody negative Antibiotics: Ampicillin Acyclovir 02/11-02/12 vancomycin 02/10current Ceftriaxone 02/10current Doxycycline 02/10current # Meningitis with neutrophilic predominant pleocytosis -Headaches, fever, Csf wbc 45 ( 93% neutrophils) # Possible Lyme disease # Transaminitis Discussion: Given her headache, fever, neurologic symptoms, she was started on empiric coverage for potential [employer]PL[employer]ANCE ME[employer]IC infection. She was covered empirically for bacterial etiologies and Viral etiology such as HSV + VZV Csf with 45 WBC ( 93 .4% neutrophils). CSF glucose 58, protein 48.3. Meningitis/ Encephalitis PCR negative. CSF cx pending. She has an equivocal Lyme screen with a positive IgM, negative IgG. She was started on oral doxycycline for possible Lyme disease . Ceftriaxone which she is on for AP[employer]ANCE ME[employer] coverage will also cover. Anaplasma and babesiosis smear is negative .Babesia and Anaplasma PCR pending. Given available CSF studies, a viral etiology is less likely, including hsv/vzv as pcr negative. Listeria less likely as PCR neg. Will dc ampicillin and acyclovir A bacterial etiology is possible as there is a neutrophil predominance. Lyme APPLIANCE MECH[employer]IC infection possible. Lyme assistant sales director ab testing pending. Less likely neurosyphilis as serum TPPA negative. 02/12 Afebrile for >24 hours WBC 4.54 hemoglobin 7.5, hematocrit 25.2, platelets 288. CSF Lyme testing/immunoblot, Borrelia pcr, West Nile pcr , VDRL pending HIV ag/ab and TPPA negative Recommendations: Continue ceftriaxone 2 g IV every 12 hours, vancomycin per pharmacy protocol pending lyme assistant sales director studies and csf culture -Discontinued ampicillin and acyclovir as per above. -Follow up blood culture Follow-up CSF studies -West Nile pcr, Borrelia PCR, Lyme immunoblot, CSF culture. -Follow up CSF vdrl (less likely to be positive with a neg serum TPPA) Continue doxycycline 100 mg p.o. twice daily pending Anaplasma/Ehrlichia PCR. Ceftriaxone will not cover this. -Follow-up serum Babesia and anaplasma/ehrlichia PCR If AP[employer]ANCE MECH[employer] studies confirm Lyme infection, csf cx sterile or no other confirmed source for her meningitis, then will decrease Ceftriaxone to once daily and plan for 28 d of treatment. Depending on severity of UE neurologic findings on admission, could consider doxycycline 100 mg po q 12h only for treatment of Lyme meningitis. Would not use if had severe neurologic findings. ID will continue to follow, but [facility] will not round or review the chart over the weekend. Call covering provider at [facility] at [phone] with questions. I will resume coverage for [facility] on Thursday 02/15. Rikki Nazario MD, MPH Infectious Disease [facility], ID Division Admission and Anticipated Discharge Date Admission Date: February 11, 2025 Subjective This patient recommendation is based on a telemedicine consult request which was completed asynchronously through chart review and information provided by the primary physician. The patient was not seen or examined today. The evaluation is consultative in nature and all patient care and treatment decisions can either be accepted or rejected by the patient's primary hospital-based treating physician using their own independent medical judgment for their patient. Time Spent Reviewing Chart: 21 - 30 minutes Afebrile for >24 hours WBC 4.54 hemoglobin 7.5, hematocrit 25.2, platelets 288 CSF with 45 WBC (93.4% polynuclear WBCs).CSF glucose 58, protein 48.3 M/E PCR negative CSF Lyme testing/immunoblot, Borrelia pcr, West Nile pcr , VDRL pending HIV ag/ab and syphilis Ab negative Results & Data Vital Signs (Past 12 Hours) Vital Signs Temp Pulse Resp BP Pulse Ox O2 Del Method 02/12/25 07:37 36.3 C L 41 L 16 109/70 98 Room Air Laboratory Results Laboratory Results - last 48 hr 02/10/25 02/11/25 02/11/25 15:09 05:24 10:43 WBC 8.70 8.62 RBC 4.34 3.43 L Hgb 9.7 L 7.9 L Hct 31.7 L 25.1 L MCV 73.0 L 73.2 L MCH 22.4 L 23.0 L MCHC 30.6 L 31.5 L RDW Std Deviation 44.2 44.4 RDW Coeff of Rosi 16.8 H 16.7 H Plt Count 274 257 MPV 10.0 10.4 Sodium 140 Potassium 3.7 Chloride 109 H Carbon Dioxide 25 Anion Gap 6 BUN 12 Creatinine 0.50 L Est Cr Clr Drug Dosing 133.9 eGFR 126.14 BUN/Creatinine Ratio 24.0 H Glucose 94 Calcium 8.0 L Ionized Calcium Total Bilirubin 0.4 AST 84 H ALT 111 H Alkaline Phosphatase 83 Total Protein 5.8 L D Albumin 3.3 L Globulin 2.5 Albumin/Globulin Ratio 1.3 Fluid Comment CSF Appearance Clear CSF Color Colorless Xanthrochromic No xanthochromia CSF Specific [place] 1.005 L CSF WBC (Auto) 45 H* CSF RBC 0 CSF Cell Count Tube # 3 CSF Mononuclear % Auto 6.6 CSF Polynuclear WBCs 93.4 CSF Chemistry Tube # 1 CSF Glucose 58 CSF Total Protein 48.3 H CSF C.neoform/gat PCR Not Detected CSF CMV DNA (PCR) Not Detected CSF Enterovirus (PCR) Not Detected CSF E. coli K1 (PCR) Not Detected CSF H. influenzae (PCR) Not Detected CSF HSV I (PCR) Not Detected CSF HSV II (PCR) Not Detected CSF HHV 6 (PCR) Not Detected CSF L.monocytogenes PCR Not Detected CSF N. meningitidis PCR Not Detected CSF Parechovirus (PCR) Not Detected CSF S. agalactiae (PCR) Not Detected CSF S. pneumoniae (PCR) Not Detected CSF VZV DNA (PCR) Not Detected Random Vancomycin Treponema pallidum Ab HIV 1&2 Ab/P24 Ag 4thGn 02/11/25 02/11/25 02/12/25 11:39 12:25 03:42 WBC 4.54 L RBC 3.43 L Hgb 7.5 L Hct 25.2 L MCV 73.5 L MCH 21.9 L MCHC 29.8 L RDW Std Deviation 45.2 RDW Coeff of Rosi 16.9 H Plt Count 288 MPV 9.7 Sodium 140 Potassium 3.9 Chloride 111 H Carbon Dioxide 22 Anion Gap 7 BUN 8 Creatinine 0.49 L Est Cr Clr Drug Dosing 136.6 eGFR 126.75 BUN/Creatinine Ratio 16.3 Glucose 98 Calcium 8.2 L Ionized Calcium 1.22 Total Bilirubin 0.2 AST 42 H ALT 85 H Alkaline Phosphatase 80 Total Protein 5.8 L Albumin 3.1 L Globulin 2.7 Albumin/Globulin Ratio 1.1 Fluid Comment CSF Appearance CSF Color Xanthrochromic CSF Specific [place] CSF WBC (Auto) CSF RBC CSF Cell Count Tube # CSF Mononuclear % Auto CSF Polynuclear WBCs CSF Chemistry Tube # CSF Glucose CSF Total Protein CSF C.neoform/gat PCR CSF CMV DNA (PCR) CSF Enterovirus (PCR) CSF E. coli K1 (PCR) CSF H. influenzae (PCR) CSF HSV I (PCR) CSF HSV II (PCR) CSF HHV 6 (PCR) CSF L.monocytogenes PCR CSF N. meningitidis PCR CSF Parechovirus (PCR) CSF S. agalactiae (PCR) CSF S. pneumoniae (PCR) CSF VZV DNA (PCR) Random Vancomycin 7.4 L Treponema pallidum Ab Negative HIV 1&2 Ab/P24 Ag 4thGn Negative Diagnostic Findings Microbiology 02/11/25 10:43 Cerebral Spinal Fluid Gram Stain - Final 02/11/25 10:43 Cerebral Spinal Fluid CSF Culture - Preliminary No growth to date. 02/10/25 18:04 Blood Aerobic Blood Culture - Preliminary No growth in Aerobic bottle after 24 hours. 02/10/25 18:04 Blood Anaerobic Blood Culture - Final 02/10/25 18:08 Blood Aerobic Blood Culture - Preliminary No growth in Aerobic bottle after 24 hours. 02/10/25 18:08 Blood Anaerobic Blood Culture - Preliminary No growth in Anaerobic bottle after 24 hours. Medications Administered Home Medications Medication Instructions Recorded Confirmed Last Taken No Known Home Medications 02/09/25 02/09/25 Unknown Active Medications Generic Name Dose Route Start Last Admin Trade Name Federica PRN Reason Stop Dose Admin Doxycycline Hyclate 100 mg 02/10/25 09:00 02/12/25 09:07 Doxycycline Hyclate 100 Mg Cap PO 02/20/25 08:59 100 mg BID MINERVA Administration Ceftriaxone Sodium 2,000 mg in 50 mls @ 100 mls/hr 02/10/25 16:30 02/12/25 06:04 Rocephin IV 02/20/25 16:29 Infused Q12H MINERVA Infusion Ampicillin Sodium 2,000 mg/ 100 mls @ 200 mls/hr 02/10/25 16:45 02/12/25 10:46 Sodium Chloride IV 02/20/25 16:44 Infused Q4H MINERVA Infusion Sodium Chloride 1,000 mls @ 125 mls/hr 02/10/25 17:30 02/12/25 06:14 Nss IV 02/13/25 17:29 125 mls/hr .Q8H MINERVA Administration Acyclovir Sodium 535 mg/ 110.7 mls @ 100 mls/hr 02/11/25 11:00 02/12/25 12:35 Dextrose IV 02/21/25 10:59 Infused Q8H MINERVA Infusion Protocol Vancomycin HCl 1,000 mg in 270 mls @ 200 mls/hr 02/12/25 10:00 02/12/25 11:31 Vancomycin Hcl / Nss IV 02/20/25 09:59 Infused Q8H MINREVA Infusion Ondansetron HCl 4 mg 02/10/25 14:53 02/10/25 14:59 Ondansetron Inj 2 Mg/Ml 2 Ml Vial IV 03/12/25 14:52 4 mg Q6H PRN Administration Nausea And Vomiting (4) Headache Headache type: other headache syndrome Qualified Code(s): G44.89 - Other headache syndrome
[2025-02-12] MEDS: REMOVE LIDODERM PATCH ONE (14:19)
[2025-02-12] MEDS ORDERED: MELATONIN 3 MG TAB PO PRN (20:39)
[2025-02-13] MEDS: KETOROLAC TROMETHAMINE 15 MG/ML VIAL IV PRN (03:46)
[2025-02-13] MEDS: ACETAMINOPHEN 500 MG TAB PO PRN (05:46)
[2025-02-13 06:54] LABS: Hematocrit (blood only) 21.9 % (37.0-47.0); Hemoglobin 7.0 g/dl (12.0-16.0); Mean Corpuscular Hemoglobin 23.4 pg (25.0-34.0); Mean Corpuscular Volume 73.2 fL (80.0-100.0); Platelet Count 295 K/uL (130-400); RDW Standard Deviation 45.2 fL (36.4-46.3); Red Blood Count 2.99 M/uL (4.20-5.40); White Blood Count 3.69 K/ul (4.8-10.8)
[2025-02-13 07:24] LABS: Alanine Aminotransferase 48.0 U/L (7-52); Albumin Globulin Ratio 0.6 (0.9-2); Alkaline Phosphatase 58.0 U/L (34-104); Anion Gap 16.0 (3-11); Bilirubin,Total 0.3 mg/dl (0.2-1.0); Blood Urea Nitrogen 5.0 mg/dl (6-23); Calcium 7.3 mg/dl (8.6-10.3); Carbon Dioxide 21.0 mmol/L (21-32); Chloride 102.0 mmol/L (98-107); Creatinine Clr Calc Pharmacy 115.4 ml/min; Globulin 4.0 gm/dl (2.5-4.0); Glucose 395.0 mg/dl (70-99(Fasting)); Potassium 3.1 mmol/L (3.5-5.1); Sodium 139.0 mmol/L (136-145); Total Protein 6.5 gm/dl (6.0-8.3)
[2025-02-13] MEDS ORDERED: GLUCAGON FOR INJ 1 MG VIAL SQ PRN (07:41)
[2025-02-13] MEDS ORDERED: GLUCOSE 40% GEL 15 GM TUBE PO PRN (07:41)
[2025-02-13] MEDS ORDERED: DEXTROSE 50% 50 ML SYRINGE IV PRN (07:41)
[2025-02-13] MEDS ORDERED: GLUCOSE 10 TAB/TUBE PO PRN (07:41)
[2025-02-13] MEDS ORDERED: PHARMACY GLYCEMIC MGMT CONSULT PRN (07:41)
[2025-02-13] MEDS ORDERED: CARBOHYDRATES FOR HYPOGLYCEMIA PO PRN (07:41)
[2025-02-13] MEDS: INSULIN ASPART PER UNIT CHARGE SC SCH (08:13)
--- NOTE | 2025-02-13 10:42 | Pharmacy Report ---
Pharmacy PK ABX Note - Date of Service February 13, 2025 - Assessment and Plan Assessment * ID consulted - continue ceftriaxone, doxycycline, and vancomycin pending cultures and serologies * Vancomycin random level of 12.4 mcg/mL associated with a therapeutic AUC of 512 mg/L.hr * Continue vancomycin and repeat level in 48 hours Plan Vancomycin * Continue vancomycin 1000 mg IV every 8 hours * Regimen is predicted to achieve target AUC/DYLAN of 400-600 mg/L.hr * Level ordered for: 02/15/25 between [id number] Pharmacy will continue to follow and will adjust dose/frequency as necessary. Thank you. Pharmacy has transitioned to AUC monitoring for vancomycin. AUC/DYLAN is the preferred PK/PD target and is associated with decreased risk of nephrotoxicity compared to traditional trough targets.
[2025-02-13] MEDS: VANCOMYCIN LEVEL ONE (10:58)
[2025-02-13] MEDS: POTASSIUM CHLORIDE 20 MEQ/15 ML UDC PO SCH (10:58)
--- NOTE | 2025-02-13 11:59 | Hospitalist Progress Note ---
Date of Service February 13, 2025 Assessment & Plan (1) Left upper extremity numbness: (2) Complicated migraine: Plan Patient is a 34 y/o F with PMHx of migraines who comes to the ED after experiencing progressively worsening headaches since 02/04. her brain MRI and CTA negative however, around 3:30pm on 02/10/2025; she spike fever of 38.8 check blood culture, acute meningitis symptoms of fever; headache and left arm pain she s/p LP on (02/11), show elevated WBC of 45 ceftriaxone, vancomycin, ampicillin, acyclovir, ID notified she currently on doxycycline ID team following her CSF lyme titer is still pending reviewed CSF fluid, so far, CSF HSV negative, VZV negative, S. 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 Low suspicion for this being the cause given exam findings and distribution of sxs. - Given that symptoms were only present when she was experiencing headaches, and given her known hx of migraines, believe that current presentation may be due to complicated migraines. - Admit to Med/Surg - MRI brain ordered - Pain control with Tylenol jeffrey, as well as Toradol for breakthrough pain, and if MRI unremarkable, can add Sumatriptan which she could continue to use for abortive therapy after discharge - LR @ 100 ml/hr - Would encourage establishing with PCP for routine f/u and for monitoring of her migraines Diet: Regular Pain Control: Tylenol jeffrey, Toradol for breakthrough pain; can add Sumatriptan if MRI brain unremarkable VTE ppx: Ambulation Code Status: FULL Admission and Anticipated Discharge Date Admission Date: February 11, 2025 Subjective she being treated for meningitis; headache and neck pain improving nursing noticined HR the 30s this morning no dizziness; no lightheadness mentation stable interval EKG, cardiology consulted for her left arm pain, improving on ceftriaonxe Physical Exam Physical Exam: VITALS: Reviewed. WEIGHT/BMI reviewed. GEN: Healthy appearing, well-developed, NAD. -Head: NC/AT; -Eyes: PERRL, EOMI. No discharge or redn ess; -Ears: External ears are normal. Normal TMs. -Nose: Normal nares. -Mouth and throat: MMM. Normal gums, muc colby, palate,. Good dentition. NECK: Supple, with no masses. non-tender to palpaton; normam ROM MSK; left shoulder non-tender to palpation; left arm non-tender to palptatoin CV: RRR, no m/r/g. LUNGS: CTAB, no w/r/c. ABD: Soft, NT/ND, NBS, no masses or organomegaly. : N/A EXT: No clubbing, cyanosis, or edema. NEURO:AAOx3 Results & Data Results & Data Vital Signs (Past 12 Hours) Vital Signs Temp Pulse Pulse Resp BP BP Pulse Ox 02/13/25 11:55 41 L 02/13/25 07:20 36.9 C 40 L 16 117/68 99 02/13/25 04:07 36.3 C L 48 L 18 113/79 98 02/13/25 00:09 37.0 C 44 L 18 105/66 98 O2 Del Method 02/13/25 11:55 02/13/25 07:20 Room Air 02/13/25 04:07 Room Air 02/13/25 00:09 Room Air Laboratory Results Laboratory Results - last 72 hr 02/10/25 02/11/25 02/11/25 15:09 05:24 10:43 WBC 8.70 8.62 RBC 4.34 3.43 L Hgb 9.7 L 7.9 L Hct 31.7 L 25.1 L MCV 73.0 L 73.2 L MCH 22.4 L 23.0 L MCHC 30.6 L 31.5 L RDW Std Deviation 44.2 44.4 RDW Coeff of Rosi 16.8 H 16.7 H Plt Count 274 257 MPV 10.0 10.4 Sodium 140 Potassium 3.7 Chloride 109 H Carbon Dioxide 25 Anion Gap 6 BUN 12 Creatinine 0.50 L Est Cr Clr Drug Dosing 133.9 eGFR 126.14 BUN/Creatinine Ratio 24.0 H Glucose 94 POC Glucose Calcium 8.0 L Ionized Calcium Total Bilirubin 0.4 AST 84 H ALT 111 H Alkaline Phosphatase 83 Total Protein 5.8 L D Albumin 3.3 L Globulin 2.5 Albumin/Globulin Ratio 1.3 TSH Cortisol AM Sample Fluid Comment CSF Appearance Clear CSF Color Colorless Xanthrochromic No xanthochromia CSF Specific [place] 1.005 L CSF WBC (Auto) 45 H* CSF RBC 0 CSF Cell Count Tube # 3 CSF Mononuclear % Auto 6.6 CSF Polynuclear WBCs 93.4 CSF Chemistry Tube # 1 CSF Glucose 58 CSF Total Protein 48.3 H CSF C.neoform/gat PCR Not Detected CSF CMV DNA (PCR) Not Detected CSF Enterovirus (PCR) Not Detected CSF E. coli K1 (PCR) Not Detected CSF H. influenzae (PCR) Not Detected CSF HSV I (PCR) Not Detected CSF HSV II (PCR) Not Detected CSF HHV 6 (PCR) Not Detected CSF L.monocytogenes PCR Not Detected CSF N. meningitidis PCR Not Detected CSF Parechovirus (PCR) Not Detected CSF S. agalactiae (PCR) Not Detected CSF S. pneumoniae (PCR) Not Detected CSF VZV DNA (PCR) Not Detected Random Vancomycin Treponema pallidum Ab HIV 1&2 Ab/P24 Ag 4thGn 02/11/25 02/11/25 02/12/25 11:39 12:25 03:42 WBC 4.54 L RBC 3.43 L Hgb 7.5 L Hct 25.2 L MCV 73.5 L MCH 21.9 L MCHC 29.8 L RDW Std Deviation 45.2 RDW Coeff of Rosi 16.9 H Plt Count 288 MPV 9.7 Sodium 140 Potassium 3.9 Chloride 111 H Carbon Dioxide 22 Anion Gap 7 BUN 8 Creatinine 0.49 L Est Cr Clr Drug Dosing 136.6 eGFR 126.75 BUN/Creatinine Ratio 16.3 Glucose 98 POC Glucose Calcium 8.2 L Ionized Calcium 1.22 Total Bilirubin 0.2 AST 42 H ALT 85 H Alkaline Phosphatase 80 Total Protein 5.8 L Albumin 3.1 L Globulin 2.7 Albumin/Globulin Ratio 1.1 TSH Cortisol AM Sample Fluid Comment CSF Appearance CSF Color Xanthrochromic CSF Specific [place] CSF WBC (Auto) CSF RBC CSF Cell Count Tube # CSF Mononuclear % Auto CSF Polynuclear WBCs CSF Chemistry Tube # CSF Glucose CSF Total Protein CSF C.neoform/gat PCR CSF CMV DNA (PCR) CSF Enterovirus (PCR) CSF E. coli K1 (PCR) CSF H. influenzae (PCR) CSF HSV I (PCR) CSF HSV II (PCR) CSF HHV 6 (PCR) CSF L.monocytogenes PCR CSF N. meningitidis PCR CSF Parechovirus (PCR) CSF S. agalactiae (PCR) CSF S. pneumoniae (PCR) CSF VZV DNA (PCR) Random Vancomycin 7.4 L Treponema pallidum Ab Negative HIV 1&2 Ab/P24 Ag 4thGn Negative 02/13/25 02/13/25 02/13/25 06:16 08:03 08:50 WBC 3.69 L RBC 2.99 L Hgb 7.0 L Hct 21.9 L MCV 73.2 L MCH 23.4 L MCHC 32.0 RDW Std Deviation 45.2 RDW Coeff of Rosi 16.9 H Plt Count 295 MPV 9.9 Sodium 139 Potassium 3.1 L D Chloride 102 Carbon Dioxide 21 Anion Gap 16 H BUN 5 L Creatinine 0.58 L Est Cr Clr Drug Dosing 115.4 eGFR 121.71 BUN/Creatinine Ratio 8.6 L Glucose 395 H* POC Glucose 110 H Calcium 7.3 L Ionized Calcium Total Bilirubin 0.3 AST 16 ALT 48 Alkaline Phosphatase 58 Total Protein 6.5 Albumin 2.5 L Globulin 4.0 Albumin/Globulin Ratio 0.6 L TSH 3.733 Cortisol AM Sample 21.87 Fluid Comment CSF Appearance CSF Color Xanthrochromic CSF Specific [place] CSF WBC (Auto) CSF RBC CSF Cell Count Tube # CSF Mononuclear % Auto CSF Polynuclear WBCs CSF Chemistry Tube # CSF Glucose CSF Total Protein CSF C.neoform/gat PCR CSF CMV DNA (PCR) CSF Enterovirus (PCR) CSF E. coli K1 (PCR) CSF H. influenzae (PCR) CSF HSV I (PCR) CSF HSV II (PCR) CSF HHV 6 (PCR) CSF L.monocytogenes PCR CSF N. meningitidis PCR CSF Parechovirus (PCR) CSF S. agalactiae (PCR) CSF S. pneumoniae (PCR) CSF VZV DNA (PCR) Random Vancomycin 12.4 Treponema pallidum Ab HIV 1&2 Ab/P24 Ag 4thGn PG Care Time/CCT Total # of Minutes Spent Total Time Spent with Patient: Total time spent is greater than 50% in coordination of care (as documented) at patient's floor/unit and/or counseling patient: Coding Level of Care Code 70251 SUB INP/OBS CARE 06/27MIN Diagnoses Left upper extremity numbness R20.0 Complicated migraine G43.109 Time Spent (min) 25
[2025-02-13 13:03] LABS: Appearance Urine Clear (Clear); Glucose Urine UA Negative (Negative)
[2025-02-13 14:14] LABS: Hematocrit (blood only) 24.5 % (37.0-47.0); Hemoglobin 7.8 g/dl (12.0-16.0); Mean Corpuscular Hemoglobin 23.1 pg (25.0-34.0); Mean Corpuscular Volume 72.5 fL (80.0-100.0); Platelet Count 338 K/uL (130-400); RDW Standard Deviation 44.0 fL (36.4-46.3); Red Blood Count 3.38 M/uL (4.20-5.40); White Blood Count 3.57 K/ul (4.8-10.8)
[2025-02-13 14:33] LABS: Anion Gap 4.0 (3-11); Blood Urea Nitrogen 4.0 mg/dl (6-23); Calcium 8.1 mg/dl (8.6-10.3); Carbon Dioxide 24.0 mmol/L (21-32); Chloride 113.0 mmol/L (98-107); Creatinine Clr Calc Pharmacy 148.8 ml/min; Glucose 112.0 mg/dl (70-99(Fasting)); Potassium 3.8 mmol/L (3.5-5.1); Sodium 141.0 mmol/L (136-145)
--- NOTE | 2025-02-13 14:38 | Cardiology Consultation ---
Date of Consultation February 13, 2025 Assessment & Plan (1) Left upper extremity numbness: (2) Bradycardia: Plan 1. Left upper extremity symptoms: I am confident that this is not cardiac in nature and would not look for coronary artery disease. 2. Bradycardia: She is quite bradycardic although not to the point where I would consider any kind of intervention and she is not on medications to cause it. It is possible it is due to Lyme disease, if so treatment of that should correct this finding. I am not sure she has symptoms related to it although it is possible, if this continues we might want to consider outpatient monitoring to look for chronotropic incompetence and for her heart rate during periods of lightheadedness. In the meantime I would keep her on the hall monitor. History of Present Illness Reason for Consultation: Bradycardia, arm pain Attending Physician: Christ Stephens DO History of Present Illness This is a 34-year-old woman unknown to our cardiology service. She does have a history of cardiac evaluation in the past for palpitations, I do not know the extent of it and do not have records as it was not done through our institution. She presented February 09, 2025 with symptoms of headache, neck pain and arm numbness. She has been hospitalized since and she has been evaluated for spinal and ELECTRONIC SCALE TESTER disease. Neurologic evaluation notes concern for meningitis and infectious disease was consulted she was treated empirically for possible ELECTRONIC SCALE TESTER infection. An echocardiogram done February 11, 2025 shows normal left ventricular systolic function with no wall motion abnormalities and no valvular abnormalities. Essentially normal. An electrocardiogram February 12, 2025 showed sinus rhythm with a sinus arrhythmia and a heart rate of 48 bpm with an incomplete right bundle branch block and a borderline FL interval. Another electrocardiogram shortly thereafter confirms sinus bradycardia with no significant difference. Her hemoglobin is very low, a high-sensitivity troponin was done on presentation and was negative. It appears that her IgM Lyme titer may be positive indicating possible acute infection. She describes a long history of lightheadedness and palpitations, it sounds as though she wore a monitor but does not recall having a diagnosis and tells me that she has been having these type of symptoms for years with no specific diagnosis. She does have a recent history of fatigue and difficulty with exertion but it sounds as though it that is several years, although worse over the last few days. She does not have exertional chest discomfort. She does not have heart failure symptoms. Allergies Allergy/AdvReac Type Severity Reaction Status Date / Time No Known Allergies Allergy Unverified 02/09/25 20:16 Home Medications Medication Instructions Recorded Confirmed Type No Known Home Medications 02/09/25 02/09/25 History Patient History Social History Smoking Status: Never smoker Tobacco Type: Cigarettes Hx Alcohol Use: Yes Hx Substance Use: No Preferred Language: Wallisian Communication Ability: Effective World Designer Required: No Beliefs That Will Affect Care: None Current Living Situation: Significant Other Other Information That Helps Us Care for You: No Feels Safe at Home: Yes Safety Concerns: Feels Safe At This Time Assistive Devices: None Review of Systems Review of Systems: All systems reviewed & are unremarkable except as noted in HPI & below Physical Exam Physical Exam: Constitutional: Alert, cooperative and in no distress. She is slender. HEENT: Unremarkable Neck: No jugular venous distention, carotid pulses are normal and equal bilate rally without bruits. Pulmonary: Clear to auscultation bilaterally. Cardiac: Regular rhythm with no murmur, gallop or rub. Abdomen: Soft, nontender with normal bowel sounds. Extremities: No edema. Neurologic: No focal findings. Gait was not tested. Skin: No rash, ecchymoses or petechiae. Results & Data Vital Signs (Past 12 Hours) Vital Signs Temp Pulse Pulse Resp BP BP Pulse Ox 02/13/25 11:55 41 L 02/13/25 07:20 36.9 C 40 L 16 117/68 99 02/13/25 04:07 36.3 C L 48 L 18 113/79 98 O2 Del Method 02/13/25 11:55 02/13/25 07:20 Room Air 02/13/25 04:07 Room Air Laboratory Results Cardiac Enzymes 02/13/25 Range/Units 06:16 AST 16 (13-39) U/L CBC 02/13/25 02/13/25 Range/Units 06:16 13:59 WBC 3.69 L 3.57 L (4.8-10.8) K/ul RBC 2.99 L 3.38 L (4.20-5.40) M/uL Hgb 7.0 L 7.8 L (12.0-16.0) g/dl Hct 21.9 L 24.5 L (37.0-47.0) % Plt Count 295 338 (130-400) K/uL Comprehensive Metabolic Panel 02/13/25 02/13/25 Range/Units 06:16 13:59 Sodium 139 141 (136-145) mmol/L Potassium 3.1 L D 3.8 D (3.5-5.1) mmol/L Chloride 102 113 H (98-107) mmol/L Carbon Dioxide 21 24 (21-32) mmol/L BUN 5 L 4 L (6-23) mg/dl Creatinine 0.58 L 0.45 L (0.6-1.2) mg/dl Glucose 395 H* 112 H (70-99(Fasting)) mg/dl Calcium 7.3 L 8.1 L (8.6-10.3) mg/dl AST 16 (13-39) U/L ALT 48 (7-52) U/L Alkaline Phosphatase 58 (34-104) U/L Total Protein 6.5 (6.0-8.3) gm/dl Albumin 2.5 L (3.4-5.0) gm/dl Intake and Output 02/12/25 02/13/25 02/13/25 22:59 06:59 14:59 Intake Total 620 / 3980.7 1560 / 3980.7 1270 / 1270 Balance 620 / 3980.7 1560 / 3980.7 1270 / 1270 Intake: IV 320 / 3120.7 1320 / 3120.7 1270 / 1270 Sodium Chloride 0.9% 1,000 ml @ 1000 / 2000 1000 / 1000 125 mls/hr IV .Q8H [facility] Rx#: [id number] Vancomycin HCl / Nss 1,000 mg 270 / 810 270 / 810 270 / 270 In 270 ml @ 200 mls/hr IV Q8H [facility] Rx#:[id number] cefTRIAXone SODIUM 2,000 mg In 50 / 100 50 / 100 50 ml @ 100 mls/hr IV Q12H [facility] Rx#:[id number] Oral 300 / 860 240 / 860 Other: Weight 53.5 kg Weight Measurement Method Built in [facility] Diagnostic Findings Telemetry: Sinus bradycardia, heart rate typically in the 30s up to a maximum of 50, very little diurnal heart rate variation. No other arrhythmia. PG Care Time/CCT Total # of Minutes Spent Total Time Spent with Patient: Total time spent is greater than 50% in coordination of care (as documented) at patient's floor/unit and/or counseling patient: Coding Level of Care Code 00690 INT INP/OBS CARE 2MIN Diagnoses Left upper extremity numbness R20.0 Bradycardia R00.1
[2025-02-14 06:36] LABS: Hematocrit (blood only) 24.4 % (37.0-47.0); Hemoglobin 7.4 g/dl (12.0-16.0); Mean Corpuscular Hemoglobin 22.2 pg (25.0-34.0); Mean Corpuscular Volume 73.3 fL (80.0-100.0); Platelet Count 353 K/uL (130-400); RDW Standard Deviation 44.5 fL (36.4-46.3); Red Blood Count 3.33 M/uL (4.20-5.40); White Blood Count 4.58 K/ul (4.8-10.8)
[2025-02-14 07:02] LABS: Alanine Aminotransferase 43.0 U/L (7-52); Albumin Globulin Ratio 1.0 (0.9-2); Alkaline Phosphatase 60.0 U/L (34-104); Anion Gap 7.0 (3-11); Bilirubin,Total 0.2 mg/dl (0.2-1.0); Blood Urea Nitrogen 4.0 mg/dl (6-23); Calcium 8.0 mg/dl (8.6-10.3); Carbon Dioxide 25.0 mmol/L (21-32); Chloride 108.0 mmol/L (98-107); Creatinine Clr Calc Pharmacy 135.4 ml/min; Globulin 2.7 gm/dl (2.5-4.0); Glucose 168.0 mg/dl (70-99(Fasting)); Potassium 3.7 mmol/L (3.5-5.1); Sodium 140.0 mmol/L (136-145); Total Protein 5.5 gm/dl (6.0-8.3)
[2025-02-14 07:17] LABS: Hemoglobin A1C 6.2 % (4.5-5.6)
--- NOTE | 2025-02-14 12:58 | Hospitalist Progress Note ---
Date of Service February 14, 2025 Assessment & Plan (1) Left upper extremity numbness: (2) Complicated migraine: Plan Patient is a 34 y/o F with PMHx of migraines who comes to the ED after experiencing progressively worsening headaches since 02/04. her brain MRI and CTA negative however, around 3:30pm on 02/10/2025; she spike fever of 38.8 check blood culture, acute meningitis symptoms of fever; headache and left arm pain she s/p LP on (02/11), show elevated WBC of 45 ceftriaxone, vancomycin, ampicillin, acyclovir, ID notified she currently on doxycycline ID team following her CSF lyme titer is still pending reviewed CSF fluid, so far, CSF HSV negative, VZV negative, S. 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 Keny Merrill H Of migraine headache this current presentation is more consistent with lyme meningitis her symptom of headche, stiff neck and left shoulder pain is all improving Diet: Regular Pain Control: Tylenol jeffrey, Toradol for breakthrough pain; can add Sumatriptan if MRI brain unremarkable VTE ppx: Ambulation Code Status: FULL Admission and Anticipated Discharge Date Admission Date: February 11, 2025 Subjective has hypokalemia and needed repletion her neck pain, headache and left shoulder pain much improved. she still on ceftriaxone and doxycycycyline her bradycardia improving but she need f/u with cardiology in the past, she was evaluated by [facility]. keep K> 4.0 and Mg > 2.0 chest denied chest pain, denied lightheadhness denied heart skipping a beat Physical Exam Physical Exam: VITALS: Reviewed. WEIGHT/BMI reviewed. GEN: Healthy appearing, well-developed, NAD. -Head: NC/AT; NECK: Supple, with no masses. normal ROM; non-tener to palpation MSK: shoulder non-tender to palpitation, normal ROM CV: RRR, no m/r/g. LUNGS: CTAB, no w/r/c. ABD: Soft, NT/ND, NBS, no masses or organomegaly. : N/A MSK: No deformities, Normal gait. EXT: No clubbing, cyanosis, or edema. NEURO: Ambulating with no limitations. Normal muscle strength and tone. No focal deficits. Results & Data Results & Data Vital Signs (Past 12 Hours) Vital Signs Temp Pulse Pulse Resp BP BP Pulse Ox 02/14/25 11:09 36.8 C 60 16 116/69 99 02/14/25 10:07 48 L 02/14/25 07:41 36.8 C 48 L 16 111/64 98 02/14/25 03:39 36.4 C L 54 L 18 100/51 L 98 O2 Del Method 02/14/25 11:09 Room Air 02/14/25 10:07 02/14/25 07:41 Room Air 02/14/25 03:39 Room Air PG Care Time/CCT Total # of Minutes Spent Total Time Spent with Patient: Total time spent is greater than 50% in coordination of care (as documented) at patient's floor/unit and/or counseling patient: Coding Level of Care Code 66885 SUB INP/OBS CARE 1/25MIN Diagnoses Left upper extremity numbness R20.0 Complicated migraine G43.109 Time Spent (min) 25
--- NOTE | 2025-02-14 14:36 | Pharmacy Report ---
Pharmacy Glycemic Sign Off Nt - Date of Service February 14, 2025 - Assessment & Plan ASSESSMENT: * Pharmacy was consulted by Dr Stephens on 02/13 for glycemic control and to write orders per [facility] inpatient glycemic control protocol. * Major changes made by pharmacy to antidiabetic regimen include: * added novolog scale * Patient has not received any insulin and blood sugars have been stable. A1c indicates pre-diabetes. If blood sugars trending upward, could consider adding in a carb ratio. PLAN FOR INPATIENT GLYCEMIC CONTROL: No changes needed to current regimen. * No basal insulin warranted * Continue NovoLog per scale ACHS/Q6hrs while NPO * Goal range = 110 - 140 mg/dl * CF = 45 mg/dl/unit * CR = 1 unit for ever -- g CHO consumed * Pharmacy is signing off of glycemic consult and will no longer be making adjustments to inpatient regimen. Please feel free to re-consult if needed. Thank you.
[2025-02-15] MEDS: POTASSIUM CHLORIDE CRTAB 20 MEQ TABCR PO STA (08:45)
[2025-02-15] MEDS: VANCOMYCIN LEVEL ONE (08:45)
[2025-02-15 09:28] LABS: Hematocrit (blood only) 29.5 % (37.0-47.0); Hemoglobin 9.3 g/dl (12.0-16.0); Mean Corpuscular Hemoglobin 23.0 pg (25.0-34.0); Mean Corpuscular Volume 73.0 fL (80.0-100.0); Platelet Count 443 K/uL (130-400); RDW Standard Deviation 43.9 fL (36.4-46.3); Red Blood Count 4.04 M/uL (4.20-5.40); White Blood Count 4.94 K/ul (4.8-10.8)
[2025-02-15 09:40] LABS: Creatinine Clr Calc Pharmacy 116.7 ml/min
[2025-02-15 09:42] LABS: Alanine Aminotransferase 50.0 U/L (7-52); Albumin Globulin Ratio 1.4 (0.9-2); Alkaline Phosphatase 71.0 U/L (34-104); Anion Gap 8.0 (3-11); Bilirubin,Total 0.3 mg/dl (0.2-1.0); Blood Urea Nitrogen 6.0 mg/dl (6-23); Calcium 9.1 mg/dl (8.6-10.3); Carbon Dioxide 27.0 mmol/L (21-32); Chloride 106.0 mmol/L (98-107); Creatinine Clr Calc Pharmacy 114.7 ml/min; Globulin 2.8 gm/dl (2.5-4.0); Glucose 117.0 mg/dl (70-99(Fasting)); Magnesium 1.9 mg/dl (1.7-2.4); Potassium 3.5 mmol/L (3.5-5.1); Sodium 141.0 mmol/L (136-145); Total Protein 6.7 gm/dl (6.0-8.3)
--- NOTE | 2025-02-15 09:53 | Pharmacy Report ---
Pharmacy PK ABX Note - Date of Service February 15, 2025 - Assessment and Plan Assessment * ID consulted - continue ceftriaxone, doxycycline, and vancomycin pending cultures and serologies * Vancomycin trough level of 15.4 mcg/mL associated with a therapeutic AUC of 511 mg/L.hr * Continue vancomycin. Repeat level on Monday 02/19 as long as renal function remains stable. Plan Vancomycin * Continue vancomycin 1000 mg IV every 8 hours * Regimen is predicted to achieve target AUC/DYLAN of 400-600 mg/L.hr * Level ordered for: 02/19 @0930 Pharmacy will continue to follow and will adjust dose/frequency as necessary. Thank you. Pharmacy has transitioned to AUC monitoring for vancomycin. AUC/DYLAN is the preferred PK/PD target and is associated with decreased risk of nephrotoxicity compared to traditional trough targets.
--- NOTE | 2025-02-15 10:50 | Infectious Disease Progress Nt ---
Date of Service February 15, 2025 Assessment & Plan (1) Complicated migraine: (2) Left arm weakness: (3) Neck pain: (4) Headache: (5) Left upper extremity numbness: Plan This is a 35-year-old female with a past medical history of migraines who presents to the ED on 02/09/2025 who presents with progressive headaches since 02/04/2025. She also endorsed left upper extremity numbness and neck pain. Headaches began on 02/04/2025 with nausea. She then developed diffuse neck pain and left upper extremity numbness, weakness and left shoulder pain that progressed prompting presentation to the ED. Her symptoms worsened with initiation of her menses. She complained of chest pain and shortness of breath. She denied fever or chills. In the ED she was febrile with a TM of 38.8. Labs: WBC 7.6, hemoglobin 9.9, platelets 335, BUN 13, creatinine 0.59, AST 45--> 84, ALT 50--> 111. Lyme screen equivocal. Lyme IgG negative, IgM positive. Anaplasma smear with no evidence of intracytoplasmic neutrophil inclusions to suggest anaplasmosis. Babesia smear negative. CT head showed no acute findings. CTA head with no definite stenosis or aneurysm of the intracranial arteries. CTA neck with no definitive stenosis of the neck arteries. CTA chest with no evidence of pulmonary embolism. MRI brain with no acute ischemia, space-occupying mass or other intracranial pathology seen. No DVT of the left upper extremity. CTA PE with no acute findings. Given her fever and headaches she was started empirically on [employer] antibiotic coverage with ceftriaxone, ampicillin, vancomycin. She was started on doxycycline for possible Lyme disease. She underwent an LP. ID consulted for fever, headache, left-sided weakness. An E consult without video evaluation completed as video/camera is not working. History obtained from chart review. Microbiology: 02/09/2025 Anaplasma smear 02/09/2025 babesiosis smear negative 02/09/2025 Babesia PCR NOT detected 02/09/2025 Lyme screen equivocal, Lyme IgG negative, Lyme IgM positive 02/10/2025 blood culture NGTD 02/11/2025 CSF culture NG 02/11/2025 CSF Meningitis/ encephalitis PCR negative for CMV, enterovirus, E. coli, H influenza, HSV 1/2, HHV, Listeria, Neisseria meningitidis, strep agal actiae, strep pneumonia, VZV, parechovirus 02/11/2025 CSF Lyme immunoblot pending 02/11/2025 CSF VDRL pending 02/11/2025 CSF crypto antigen pending 02/11/2025 CSF Borrelia Burgdorferi PCR pending 02/11/2025 CSF Borrelia Miyamotoi PCR pending 02/11/2025 CSF West Nile PCR pending 02/11/2025 serum TPPA negative 02/11/2025 Anaplasma PCR NOT DETECTED 02/11/2025 HIV 1/2 antigen antibody negative Antibiotics: Ampicillin Acyclovir 02/11-02/12 vancomycin Ceftriaxone 02/10current Doxycycline 02/10current # Meningitis with neutrophilic predominant pleocytosis -Headaches, fever, Csf wbc 45 ( 93% neutrophils) # Possible Lyme disease with / cardiac and MAKE [employer] GIR[employer] involvement # Transaminitis # Sinus Bradycardia Discussion: Given her headache, fever, neurologic symptoms, she was started on empiric coverage for potential MAKE [employer] GIR[employer] infection. She was covered empirically for bacterial etiologies and Viral etiology such as HSV + VZV Csf with 45 WBC ( 93 .4% neutrophils). CSF glucose 58, protein 48.3. Meningitis/ Encephalitis PCR negative. CSF cx pending. She has an equivocal Lyme screen with a positive IgM, negative IgG. She was started on oral doxycycline for possible Lyme disease . Ceftriaxone which she is on for [employer] coverage will also cover. Anaplasma and babesiosis smear is negative .Babesia and Anaplasma PCR pending. Given available CSF studies, a viral etiology is less likely, including hsv/vzv as pcr negative. Listeria less likely as PCR neg. Will dc ampicillin and acyclovir A bacterial etiology is possible as there is a neutrophil predominance. Lyme MAKE [employer] GIRL infection possible. 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 Less likely neurosyphilis as serum TPPA negative. 02/12 Afebrile for >24 hours WBC 4.54 hemoglobin 7.5, hematocrit 25.2, platelets 288. CSF Lyme testing/immunoblot, Borrelia pcr, West Nile pcr , VDRL pending HIV ag/ab and TPPA negative. discontinued ampicillin acyclovir 02/15- Has had sinus bradycardia with HR low to 40. Possibly 2/2 Lyme. Evaluated by cardiology- no intervention. 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 Depending on severity of UE neurologic findings on admission, could consider doxycycline 100 mg po q 12h only for treatment of Lyme meningitis and ? lyme carditis. Would not use if had severe neurologic findings. ID will continue to follow. Rikki Nazario MD, MPH Infectious Disease [facility], ID Division Call [phone] with questions. Admission and Anticipated Discharge Date Admission Date: February 11, 2025 Subjective This patient recommendation is based on a telemedicine consult request which was completed asynchronously through chart review and information provided by the primary physician. The patient was not seen or examined today. The evaluation is consultative in nature and all patient care and treatment decisions can either be accepted or rejected by the patient's primary hospital-based treating physician using their own independent medical judgment for their patient. Time Spent Reviewing Chart: 21 - 30 minutes Afebrile Weekend events noted Sinus Bradycardia with HR to as low as 40 CSf cx NG babesia and anaplasma pcr negative CSF lyme studies pending Results & Data Vital Signs (Past 12 Hours) Vital Signs Temp Pulse Pulse Resp BP Pulse Ox O2 Del Method 02/15/25 08:20 36.5 C 60 20 99/63 L 99 Room Air 02/15/25 07:23 45 L 02/15/25 03:03 36.8 C 103 H 14 120/73 94 Room Air 02/14/25 23:25 37 C 68 14 101/61 99 Room Air Laboratory Results Laboratory Results - last 48 hr 02/09/25 02/11/25 02/11/25 17:45 05:24 10:43 WBC RBC Hgb Hct MCV MCH MCHC RDW Std Deviation RDW Coeff of Rosi Plt Count MPV Sodium Potassium Chloride Carbon Dioxide Anion Gap BUN Creatinine Est Cr Clr Drug Dosing eGFR BUN/Creatinine Ratio Glucose POC Glucose Estimat Average Glucose Hemoglobin A1c Calcium Magnesium Total Bilirubin AST ALT Alkaline Phosphatase C-Reactive Protein Total Protein Albumin Globulin Albumin/Globulin Ratio Urine Color Urine Appearance Urine pH Ur Specific [place] Urine Protein Urine Glucose (UA) Urine Ketones Urine Blood Urine Nitrite Urine Bilirubin Urine Urobilinogen Ur Leukocyte Esterase Urine Comment CSF Lactate 14.7 Random Vancomycin A. phagocytophilum DNA Negative Babesia microti DNA PCR Not Detected 02/13/25 02/13/25 02/13/25 12:06 12:50 13:59 WBC 3.57 L RBC 3.38 L Hgb 7.8 L Hct 24.5 L MCV 72.5 L MCH 23.1 L MCHC 31.8 L RDW Std Deviation 44.0 RDW Coeff of Rosi 16.6 H Plt Count 338 MPV 9.5 Sodium 141 Potassium 3.8 D Chloride 113 H Carbon Dioxide 24 Anion Gap 4 BUN 4 L Creatinine 0.45 L Est Cr Clr Drug Dosing 148.8 eGFR 129.38 BUN/Creatinine Ratio 8.9 L Glucose 112 H POC Glucose 100 H Estimat Average Glucose Hemoglobin A1c Calcium 8.1 L Magnesium Total Bilirubin AST ALT Alkaline Phosphatase C-Reactive Protein Total Protein Albumin Globulin Albumin/Globulin Ratio Urine Color Yellow Urine Appearance Clear Urine pH 7.5 Ur Specific [place] 1.007 Urine Protein Negative Urine Glucose (UA) Negative Urine Ketones Negative Urine Blood Negative Urine Nitrite Negative Urine Bilirubin Negative Urine Urobilinogen Negative Ur Leukocyte Esterase Negative Urine Comment CSF Lactate Random Vancomycin A. phagocytophilum DNA Babesia microti DNA PCR 02/13/25 02/13/25 02/14/25 16:50 20:24 05:36 WBC 4.58 L RBC 3.33 L Hgb 7.4 L Hct 24.4 L MCV 73.3 L MCH 22.2 L MCHC 30.3 L RDW Std Deviation 44.5 RDW Coeff of Rosi 16.8 H Plt Count 353 MPV 9.9 Sodium 140 Potassium 3.7 Chloride 108 H Carbon Dioxide 25 Anion Gap 7 BUN 4 L Creatinine 0.49 L Est Cr Clr Drug Dosing 135.4 eGFR 126.75 BUN/Creatinine Ratio 8.2 L Glucose 168 H POC Glucose 113 H 121 H Estimat Average Glucose 131 Hemoglobin A1c 6.2 H Calcium 8.0 L Magnesium Total Bilirubin 0.2 AST 15 ALT 43 Alkaline Phosphatase 60 C-Reactive Protein Total Protein 5.5 L Albumin 2.8 L Globulin 2.7 Albumin/Globulin Ratio 1.0 Urine Color Urine Appearance Urine pH Ur Specific [place] Urine Protein Urine Glucose (UA) Urine Ketones Urine Blood Urine Nitrite Urine Bilirubin Urine Urobilinogen Ur Leukocyte Esterase Urine Comment CSF Lactate Random Vancomycin A. phagocytophilum DNA Babesia microti DNA PCR 02/14/25 02/14/25 02/14/25 08:05 12:01 16:44 WBC RBC Hgb Hct MCV MCH MCHC RDW Std Deviation RDW Coeff of Rosi Plt Count MPV Sodium Potassium Chloride Carbon Dioxide Anion Gap BUN Creatinine Est Cr Clr Drug Dosing eGFR BUN/Creatinine Ratio Glucose POC Glucose 100 H 107 H 101 H Estimat Average Glucose Hemoglobin A1c Calcium Magnesium Total Bilirubin AST ALT Alkaline Phosphatase C-Reactive Protein Total Protein Albumin Globulin Albumin/Globulin Ratio Urine Color Urine Appearance Urine pH Ur Specific [place] Urine Protein Urine Glucose (UA) Urine Ketones Urine Blood Urine Nitrite Urine Bilirubin Urine Urobilinogen Ur Leukocyte Esterase Urine Comment CSF Lactate Random Vancomycin A. phagocytophilum DNA Babesia microti DNA PCR 02/14/25 02/15/25 02/15/25 20:35 08:04 08:56 WBC 4.94 RBC 4.04 L Hgb 9.3 L Hct 29.5 L MCV 73.0 L MCH 23.0 L MCHC 31.5 L RDW Std Deviation 43.9 RDW Coeff of Rosi 16.7 H Plt Count 443 H MPV 9.4 Sodium 141 Potassium 3.5 Chloride 106 Carbon Dioxide 27 Anion Gap 8 BUN 6 Creatinine 0.58 L Est Cr Clr Drug Dosing eGFR BUN/Creatinine Ratio Glucose POC Glucose 98 96 Estimat Average Glucose Hemoglobin A1c Calcium Magnesium Total Bilirubin AST ALT Alkaline Phosphatase C-Reactive Protein Total Protein Albumin Globulin Albumin/Globulin Ratio Urine Color Urine Appearance Urine pH Ur Specific [place] Urine Protein Urine Glucose (UA) Urine Ketones Urine Blood Urine Nitrite Urine Bilirubin Urine Urobilinogen Ur Leukocyte Esterase Urine Comment CSF Lactate Random Vancomycin A. phagocytophilum DNA Babesia microti DNA PCR 02/15/25 02/15/25 02/15/25 08:56 08:56 08:56 WBC RBC Hgb Hct MCV MCH MCHC RDW Std Deviation RDW Coeff of Rosi Plt Count MPV Sodium Potassium Chloride Carbon Dioxide Anion Gap BUN Creatinine 0.59 L Est Cr Clr Drug Dosing 116.7 114.7 eGFR 121.71 121.21 BUN/Creatinine Ratio 10.2 Glucose 117 H POC Glucose Estimat Average Glucose Hemoglobin A1c Calcium 9.1 Magnesium 1.9 Total Bilirubin 0.3 AST 22 ALT 50 Alkaline Phosphatase 71 C-Reactive Protein 1.13 H Total Protein 6.7 D Albumin 3.9 Globulin 2.8 Albumin/Globulin Ratio 1.4 Urine Color Urine Appearance Urine pH Ur Specific [place] Urine Protein Urine Glucose (UA) Urine Ketones Urine Blood Urine Nitrite Urine Bilirubin Urine Urobilinogen Ur Leukocyte Esterase Urine Comment CSF Lactate Random Vancomycin 15.3 A. phagocytophilum DNA Babesia microti DNA PCR Microbiology 02/11/25 10:43 Cerebral Spinal Fluid Gram Stain - Final 02/11/25 10:43 Cerebral Spinal Fluid CSF Culture - Final No growth 02/10/25 18:08 Blood Aerobic Blood Culture - Preliminary No growth in Aerobic bottle after 48 hours. 02/10/25 18:08 Blood Anaerobic Blood Culture - Preliminary No growth in Anaerobic bottle after 48 hours. 02/10/25 18:04 Blood Aerobic Blood Culture - Preliminary No growth in Aerobic bottle after 48 hours. 02/10/25 18:04 Blood Anaerobic Blood Culture - Final Medications Administered Home Medications Medication Instructions Recorded Confirmed Last Taken No Known Home Medications 02/09/25 02/09/25 Unknown Active Medications Generic Name Dose Route Start Last Admin Trade Name Freq PRN Reason Stop Dose Admin Acetaminophen 1,000 mg 02/12/25 20:37 02/13/25 21:47 Acetaminophen 500 Mg Tab PO 03/14/25 20:36 1,000 mg Q8H PRN Administration Pain or Fever Doxycycline Hyclate 100 mg 02/10/25 09:00 02/15/25 07:53 Doxycycline Hyclate 100 Mg Cap PO 02/20/25 08:59 100 mg BID [place] Administration Ceftriaxone Sodium 2,000 mg in 50 mls @ 100 mls/hr 02/10/25 16:30 02/15/25 05:04 Rocephin IV 02/20/25 16:29 Infused Q12H [place] Infusion Vancomycin HCl 1,000 mg in 270 mls @ 200 mls/hr 02/12/25 10:00 02/15/25 09:50 Vancomycin Hcl / Nss IV 02/20/25 09:59 200 mls/hr Q8H [place] Administration Insulin Aspart 0 units 02/13/25 08:00 02/15/25 08:06 Insulin Aspart Per Unit Charge SC 03/15/25 07:59 Not Given ACHS [facility] Ketorolac Tromethamine 15 mg 02/12/25 20:36 02/14/25 21:24 Ketorolac Tromethamine 15 Mg/Ml Vial IV 02/17/25 20:35 15 mg Q6H PRN Administration Pain Ondansetron HCl 4 mg 02/10/25 14:53 02/13/25 08:06 Ondansetron Inj 2 Mg/Ml 2 Ml Vial IV 03/12/25 14:52 4 mg Q6H PRN Administration Nausea And Vomiting Sumatriptan Succinate 50 mg 02/10/25 02:49 02/14/25 23:10 Sumatriptan Succinate 50 Mg Tab PO 03/12/25 02:48 50 mg Q2H PRN Administration Migraine Headache (4) Headache Headache type: other headache syndrome Qualified Code(s): G44.89 - Other headache syndrome
--- NOTE | 2025-02-15 12:54 | Electrocardiogram Report ---
Test Reason : Blood Pressure : */* mmHG Vent. Rate : 48 BPM Atrial Rate : 48 BPM P-R Int : 204 ms QRS Dur : 98 ms QT Int : 464 ms P-R-T Axes : 10 98 82 degrees QTcB Int : 414 ms Sinus bradycardia with sinus arrhythmia Rightward axis Incomplete right bundle branch block Nonspecific T wave abnormality Abnormal ECG When compared with ECG of 09-Feb-2025 17:58, Vent. rate has decreased by 44 bpm Nonspecific T wave abnormality now evident in Lateral leads Confirmed by Keny Merrill ([id number]) on 02/15/2025 12:54:23 PM Referred By: REFERRED SELF Confirmed By: Keny Merrill
--- NOTE | 2025-02-15 13:06 | Electrocardiogram Report ---
Test Reason : Blood Pressure : */* mmHG Vent. Rate : 38 BPM Atrial Rate : 38 BPM P-R Int : 184 ms QRS Dur : 92 ms QT Int : 494 ms P-R-T Axes : 30 100 80 degrees QTcB Int : 392 ms Poor data quality, interpretation may be adversely affected Marked sinus bradycardia Rightward axis Incomplete right bundle branch block Abnormal ECG When compared with ECG of 12-Feb-2025 16:37, (unconfirmed) No significant change was found Confirmed by Keny Merrill ([id number]) on 02/15/2025 1:06:14 PM Referred By: REFERRED SELF Confirmed By: Keny Merrill
--- NOTE | 2025-02-15 17:31 | Hospitalist Progress Note ---
Date of Service February 15, 2025 Assessment & Plan (1) Left upper extremity numbness: (2) Complicated migraine: Plan Patient is a 34 y/o F with PMHx of migraines who comes to the ED after experiencing progressively worsening headaches since 02/04. her brain MRI and CTA negative however, around 3:30pm on 02/10/2025; she spike fever of 38.8 check blood culture, s/p LP on 02/11/2025, on ceftriaxone, neck pain improved but still has headache she's has no PCP acute meningitis symptoms of fever; headache and left arm pain she s/p LP on 02/11, show elevated WBC of 45 csf lyme still pending still has headache and still need ceftriaxone reviewed CSF fluid, so far, CSF HSV negative, VZV negative, S. 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 WEIGHT/BMI reviewed. GEN: Healthy appearing, well-developed, NAD. PSYCH: Good Judgment. AOx3. Normal memory, mood, and affect. HEENT -Head: NC/AT; NECK: non-painful to palpitation, normal ROM CV: RRR, no m/r/g. LUNGS: CTAB, no w/r/c. ABD: Soft, NT/ND, NBS, no masses or organomegaly. SKIN: Warm, well perfused. No skin rashes or abnormal lesions. MSK: No deformities, Normal gait. EXT: No clubbing, cyanosis, or edema. NEURO: AAOx3 Results & Data Results & Data Vital Signs (Past 12 Hours) Vital Signs Temp Pulse Pulse Resp BP Pulse Ox O2 Del Method 02/15/25 16:29 36.9 C 95 H 18 109/67 99 Room Air 02/15/25 14:33 72 02/15/25 11:32 36.7 C 70 18 112/69 92 Room Air 02/15/25 08:20 36.5 C 60 20 99/63 L 99 Room Air 02/15/25 07:23 45 L Laboratory Results Laboratory Results - last 72 hr 02/09/25 02/11/25 02/11/25 17:45 05:24 10:43 WBC RBC Hgb Hct MCV MCH MCHC RDW Std Deviation RDW Coeff of Rosi Plt Count MPV Sodium Potassium Chloride Carbon Dioxide Anion Gap BUN Creatinine Est Cr Clr Drug Dosing eGFR BUN/Creatinine Ratio Glucose POC Glucose Estimat Average Glucose Hemoglobin A1c Calcium Magnesium Total Bilirubin AST ALT Alkaline Phosphatase C-Reactive Protein Total Protein Albumin Globulin Albumin/Globulin Ratio TSH Cortisol AM Sample Urine Color Urine Appearance Urine pH Ur Specific [place] Urine Protein Urine Glucose (UA) Urine Ketones Urine Blood Urine Nitrite Urine Bilirubin Urine Urobilinogen Ur Leukocyte Esterase Urine Comment CSF Lactate 14.7 Random Vancomycin A. phagocytophilum DNA Negative Babesia microti DNA PCR Not Detected 02/13/25 02/13/25 02/13/25 06:16 08:03 08:50 WBC 3.69 L RBC 2.99 L Hgb 7.0 L Hct 21.9 L MCV 73.2 L MCH 23.4 L MCHC 32.0 RDW Std Deviation 45.2 RDW Coeff of Rosi 16.9 H Plt Count 295 MPV 9.9 Sodium 139 Potassium 3.1 L D Chloride 102 Carbon Dioxide 21 Anion Gap 16 H BUN 5 L Creatinine 0.58 L Est Cr Clr Drug Dosing 115.4 eGFR 121.71 BUN/Creatinine Ratio 8.6 L Glucose 395 H* POC Glucose 110 H Estimat Average Glucose Hemoglobin A1c Calcium 7.3 L Magnesium Total Bilirubin 0.3 AST 16 ALT 48 Alkaline Phosphatase 58 C-Reactive Protein Total Protein 6.5 Albumin 2.5 L Globulin 4.0 Albumin/Globulin Ratio 0.6 L TSH 3.733 Cortisol AM Sample 21.87 Urine Color Urine Appearance Urine pH Ur Specific [place] Urine Protein Urine Glucose (UA) Urine Ketones Urine Blood Urine Nitrite Urine Bilirubin Urine Urobilinogen Ur Leukocyte Esterase Urine Comment CSF Lactate Random Vancomycin 12.4 A. phagocytophilum DNA Babesia microti DNA PCR 02/13/25 02/13/25 02/13/25 12:06 12:50 13:59 WBC 3.57 L RBC 3.38 L Hgb 7.8 L Hct 24.5 L MCV 72.5 L MCH 23.1 L MCHC 31.8 L RDW Std Deviation 44.0 RDW Coeff of Rosi 16.6 H Plt Count 338 MPV 9.5 Sodium 141 Potassium 3.8 D Chloride 113 H Carbon Dioxide 24 Anion Gap 4 BUN 4 L Creatinine 0.45 L Est Cr Clr Drug Dosing 148.8 eGFR 129.38 BUN/Creatinine Ratio 8.9 L Glucose 112 H POC Glucose 100 H Estimat Average Glucose Hemoglobin A1c Calcium 8.1 L Magnesium Total Bilirubin AST ALT Alkaline Phosphatase C-Reactive Protein Total Protein Albumin Globulin Albumin/Globulin Ratio TSH Cortisol AM Sample Urine Color Yellow Urine Appearance Clear Urine pH 7.5 Ur Specific [place] 1.007 Urine Protein Negative Urine Glucose (UA) Negative Urine Ketones Negative Urine Blood Negative Urine Nitrite Negative Urine Bilirubin Negative Urine Urobilinogen Negative Ur Leukocyte Esterase Negative Urine Comment CSF Lactate Random Vancomycin A. phagocytophilum DNA Babesia microti DNA PCR 02/13/25 02/13/25 02/14/25 16:50 20:24 05:36 WBC 4.58 L RBC 3.33 L Hgb 7.4 L Hct 24.4 L MCV 73.3 L MCH 22.2 L MCHC 30.3 L RDW Std Deviation 44.5 RDW Coeff of Rosi 16.8 H Plt Count 353 MPV 9.9 Sodium 140 Potassium 3.7 Chloride 108 H Carbon Dioxide 25 Anion Gap 7 BUN 4 L Creatinine 0.49 L Est Cr Clr Drug Dosing 135.4 eGFR 126.75 BUN/Creatinine Ratio 8.2 L Glucose 168 H POC Glucose 113 H 121 H Estimat Average Glucose 131 Hemoglobin A1c 6.2 H Calcium 8.0 L Magnesium Total Bilirubin 0.2 AST 15 ALT 43 Alkaline Phosphatase 60 C-Reactive Protein Total Protein 5.5 L Albumin 2.8 L Globulin 2.7 Albumin/Globulin Ratio 1.0 TSH Cortisol AM Sample Urine Color Urine Appearance Urine pH Ur Specific [place] Urine Protein Urine Glucose (UA) Urine Ketones Urine Blood Urine Nitrite Urine Bilirubin Urine Urobilinogen Ur Leukocyte Esterase Urine Comment CSF Lactate Random Vancomycin A. phagocytophilum DNA Babesia microti DNA PCR 02/14/25 02/14/25 02/14/25 08:05 12:01 16:44 WBC RBC Hgb Hct MCV MCH MCHC RDW Std Deviation RDW Coeff of Rosi Plt Count MPV Sodium Potassium Chloride Carbon Dioxide Anion Gap BUN Creatinine Est Cr Clr Drug Dosing eGFR BUN/Creatinine Ratio Glucose POC Glucose 100 H 107 H 101 H Estimat Average Glucose Hemoglobin A1c Calcium Magnesium Total Bilirubin AST ALT Alkaline Phosphatase C-Reactive Protein Total Protein Albumin Globulin Albumin/Globulin Ratio TSH Cortisol AM Sample Urine Color Urine Appearance Urine pH Ur Specific [place] Urine Protein Urine Glucose (UA) Urine Ketones Urine Blood Urine Nitrite Urine Bilirubin Urine Urobilinogen Ur Leukocyte Esterase Urine Comment CSF Lactate Random Vancomycin A. phagocytophilum DNA Babesia microti DNA PCR 02/14/25 02/15/25 02/15/25 20:35 08:04 08:56 WBC 4.94 RBC 4.04 L Hgb 9.3 L Hct 29.5 L MCV 73.0 L MCH 23.0 L MCHC 31.5 L RDW Std Deviation 43.9 RDW Coeff of Rosi 16.7 H Plt Count 443 H MPV 9.4 Sodium 141 Potassium 3.5 Chloride 106 Carbon Dioxide 27 Anion Gap 8 BUN 6 Creatinine 0.58 L Est Cr Clr Drug Dosing eGFR BUN/Creatinine Ratio Glucose POC Glucose 98 96 Estimat Average Glucose Hemoglobin A1c Calcium Magnesium Total Bilirubin AST ALT Alkaline Phosphatase C-Reactive Protein Total Protein Albumin Globulin Albumin/Globulin Ratio TSH Cortisol AM Sample Urine Color Urine Appearance Urine pH Ur Specific [place] Urine Protein Urine Glucose (UA) Urine Ketones Urine Blood Urine Nitrite Urine Bilirubin Urine Urobilinogen Ur Leukocyte Esterase Urine Comment CSF Lactate Random Vancomycin A. phagocytophilum DNA Babesia microti DNA PCR 02/15/25 02/15/25 02/15/25 08:56 08:56 08:56 WBC RBC Hgb Hct MCV MCH MCHC RDW Std Deviation RDW Coeff of Rosi Plt Count MPV Sodium Potassium Chloride Carbon Dioxide Anion Gap BUN Creatinine 0.59 L Est Cr Clr Drug Dosing 116.7 114.7 eGFR 121.71 121.21 BUN/Creatinine Ratio 10.2 Glucose 117 H POC Glucose Estimat Average Glucose Hemoglobin A1c Calcium 9.1 Magnesium 1.9 Total Bilirubin 0.3 AST 22 ALT 50 Alkaline Phosphatase 71 C-Reactive Protein 1.13 H Total Protein 6.7 D Albumin 3.9 Globulin 2.8 Albumin/Globulin Ratio 1.4 TSH Cortisol AM Sample Urine Color Urine Appearance Urine pH Ur Specific [place] Urine Protein Urine Glucose (UA) Urine Ketones Urine Blood Urine Nitrite Urine Bilirubin Urine Urobilinogen Ur Leukocyte Esterase Urine Comment CSF Lactate Random Vancomycin 15.3 A. phagocytophilum DNA Babesia microti DNA PCR 02/15/25 11:57 WBC RBC Hgb Hct MCV MCH MCHC RDW Std Deviation RDW Coeff of Rosi Plt Count MPV Sodium Potassium Chloride Carbon Dioxide Anion Gap BUN Creatinine Est Cr Clr Drug Dosing eGFR BUN/Creatinine Ratio Glucose POC Glucose 114 H Estimat Average Glucose Hemoglobin A1c Calcium Magnesium Total Bilirubin AST ALT Alkaline Phosphatase C-Reactive Protein Total Protein Albumin Globulin Albumin/Globulin Ratio TSH Cortisol AM Sample Urine Color Urine Appearance Urine pH Ur Specific [place] Urine Protein Urine Glucose (UA) Urine Ketones Urine Blood Urine Nitrite Urine Bilirubin Urine Urobilinogen Ur Leukocyte Esterase Urine Comment CSF Lactate Random Vancomycin A. phagocytophilum DNA Babesia microti DNA PCR PG Care Time/CCT Total # of Minutes Spent Total Time Spent with Patient: Total time spent is greater than 50% in coordination of care (as documented) at patient's floor/unit and/or counseling patient: Coding Level of Care Code 81279 SUB INP/OBS CARE 25MIN Diagnoses Left upper extremity numbness R20.0 Complicated migraine G43.109 Time Spent (min)
[2025-02-16] MEDS: cefTRIAXone SODIUM 2,000 MG/50 ML BAG IV SCH (04:33)
--- NOTE | 2025-02-16 10:56 | Hospitalist Progress Note ---
Date of Service February 16, 2025 Assessment & Plan (1) Left upper extremity numbness: (2) Complicated migraine: Plan Patient is a 34 y/o F with PMHx of migraines who comes to the ED after experiencing progressively worsening headaches since 02/04. her brain MRI and CTA negative however, around 3:30pm on 02/10/2025; she spike fever of 38.8 check blood culture, s/p LP on 02/11/2025, on ceftriaxone, neck pain improved but still has headache she's has no PCP acute meningitis on 02/16, continue to has 5/[address] neck pain Dr. jeison FRANK requested for ceftriaxone for 28 days f/u on CSF lyme titer appreciate case management assistance with setting up ceftriaxone bradycardia episode HR in the 30-40s, HR been > 45 addressing hypokalemia in the past, she was seen by [facility]dc associate of [place] no dizziness; no lightheadedness hypokalemia deposition she can be dc today if we can set up IV ceftriaxone Dr. Bingham (ID) is agreeable for outpatient f/u she's will need weekly CMP, LFT, CBC while on ceftriaxone she will need to f/u with cardiology Dr. Merrill for event monitor pre-diabetes pericardial cyst f/u on echocardiogram she need close f/u with Dr. Keny Merrill PMH Of migraine headache her current headache is different from her typical migraine headache Diet: Regular Pain Control: Tylenol jeffrey, Toradol for breakthrough pain; can add Sumatriptan if MRI brain unremarkable VTE ppx: Ambulation Code Status: FULL Admission and Anticipated Discharge Date Admission Date: February 11, 2025 Subjective she still have 5/10 headache and neck discomfort spoke with Dr. Jeison FRANK, recommenced IV ceftriaxone for 28 days case management notified. appreciate their help with setting home ceftriaxone Dr. Bingham willing to f/u with patient on outpatient basis no chest pain Physical Exam Physical Exam: VITALS: Reviewed. WEIGHT/BMI reviewed. GEN: Healthy appearing, well-developed, NAD. thin appearing PSYCH: Good Judgment. AOx3. Normal memory, mood, and affect. HEENT -Head: NC/AT; NECK: tender to palpation CV: RRR, no m/r/g. LUNGS: CTAB, no w/r/c. ABD: Soft, NT/ND, NBS, no masses or organomegaly. : N/A MSK: No deformities, Normal gait. EXT: No clubbing, cyanosis, or edema. Neuro: AAOx3; no photophobia, no phonophobia Results & Data Results & Data Vital Signs (Past 12 Hours) Vital Signs Temp Pulse Pulse Resp BP Pulse Ox O2 Del Method 02/16/25 08:21 56 L 02/16/25 07:22 36.5 C 61 14 107/67 99 Room Air 02/16/25 02:45 36.7 C 64 16 100/59 L 97 Room Air Laboratory Results Laboratory Results - last 72 hr 02/09/25 02/11/25 02/11/25 17:45 05:24 10:43 WBC RBC Hgb Hct MCV MCH MCHC RDW Std Deviation RDW Coeff of Rosi Plt Count MPV Sodium Potassium Chloride Carbon Dioxide Anion Gap BUN Creatinine Est Cr Clr Drug Dosing eGFR BUN/Creatinine Ratio Glucose POC Glucose Estimat Average Glucose Hemoglobin A1c Calcium Magnesium Total Bilirubin AST ALT Alkaline Phosphatase C-Reactive Protein Total Protein Albumin Globulin Albumin/Globulin Ratio Urine Color Urine Appearance Urine pH Ur Specific [place] Urine Protein Urine Glucose (UA) Urine Ketones Urine Blood Urine Nitrite Urine Bilirubin Urine Urobilinogen Ur Leukocyte Esterase Urine Comment CSF Lactate 14.7 Random Vancomycin A. phagocytophilum DNA Negative Babesia microti DNA PCR Not Detected 02/13/25 02/13/25 02/13/25 12:06 12:50 13:59 WBC 3.57 L RBC 3.38 L Hgb 7.8 L Hct 24.5 L MCV 72.5 L MCH 23.1 L MCHC 31.8 L RDW Std Deviation 44.0 RDW Coeff of Rosi 16.6 H Plt Count 338 MPV 9.5 Sodium 141 Potassium 3.8 D Chloride 113 H Carbon Dioxide 24 Anion Gap 4 BUN 4 L Creatinine 0.45 L Est Cr Clr Drug Dosing 148.8 eGFR 129.38 BUN/Creatinine Ratio 8.9 L Glucose 112 H POC Glucose 100 H Estimat Average Glucose Hemoglobin A1c Calcium 8.1 L Magnesium Total Bilirubin AST ALT Alkaline Phosphatase C-Reactive Protein Total Protein Albumin Globulin Albumin/Globulin Ratio Urine Color Yellow Urine Appearance Clear Urine pH 7.5 Ur Specific [place] 1.007 Urine Protein Negative Urine Glucose (UA) Negative Urine Ketones Negative Urine Blood Negative Urine Nitrite Negative Urine Bilirubin Negative Urine Urobilinogen Negative Ur Leukocyte Esterase Negative Urine Comment CSF Lactate Random Vancomycin A. phagocytophilum DNA Babesia microti DNA PCR 02/13/25 02/13/25 02/14/25 16:50 20:24 05:36 WBC 4.58 L RBC 3.33 L Hgb 7.4 L Hct 24.4 L MCV 73.3 L MCH 22.2 L MCHC 30.3 L RDW Std Deviation 44.5 RDW Coeff of Rosi 16.8 H Plt Count 353 MPV 9.9 Sodium 140 Potassium 3.7 Chloride 108 H Carbon Dioxide 25 Anion Gap 7 BUN 4 L Creatinine 0.49 L Est Cr Clr Drug Dosing 135.4 eGFR 126.75 BUN/Creatinine Ratio 8.2 L Glucose 168 H POC Glucose 113 H 121 H Estimat Average Glucose 131 Hemoglobin A1c 6.2 H Calcium 8.0 L Magnesium Total Bilirubin 0.2 AST 15 ALT 43 Alkaline Phosphatase 60 C-Reactive Protein Total Protein 5.5 L Albumin 2.8 L Globulin 2.7 Albumin/Globulin Ratio 1.0 Urine Color Urine Appearance Urine pH Ur Specific [place] Urine Protein Urine Glucose (UA) Urine Ketones Urine Blood Urine Nitrite Urine Bilirubin Urine Urobilinogen Ur Leukocyte Esterase Urine Comment CSF Lactate Random Vancomycin A. phagocytophilum DNA Babesia microti DNA PCR 02/14/25 02/14/25 02/14/25 08:05 12:01 16:44 WBC RBC Hgb Hct MCV MCH MCHC RDW Std Deviation RDW Coeff of Rosi Plt Count MPV Sodium Potassium Chloride Carbon Dioxide Anion Gap BUN Creatinine Est Cr Clr Drug Dosing eGFR BUN/Creatinine Ratio Glucose POC Glucose 100 H 107 H 101 H Estimat Average Glucose Hemoglobin A1c Calcium Magnesium Total Bilirubin AST ALT Alkaline Phosphatase C-Reactive Protein Total Protein Albumin Globulin Albumin/Globulin Ratio Urine Color Urine Appearance Urine pH Ur Specific [place] Urine Protein Urine Glucose (UA) Urine Ketones Urine Blood Urine Nitrite Urine Bilirubin Urine Urobilinogen Ur Leukocyte Esterase Urine Comment CSF Lactate Random Vancomycin A. phagocytophilum DNA Babesia microti DNA PCR 02/14/25 02/15/25 02/15/25 20:35 08:04 08:56 WBC 4.94 RBC 4.04 L Hgb 9.3 L Hct 29.5 L MCV 73.0 L MCH 23.0 L MCHC 31.5 L RDW Std Deviation 43.9 RDW Coeff of Rosi 16.7 H Plt Count 443 H MPV 9.4 Sodium 141 Potassium 3.5 Chloride 106 Carbon Dioxide 27 Anion Gap 8 BUN 6 Creatinine 0.58 L Est Cr Clr Drug Dosing eGFR BUN/Creatinine Ratio Glucose POC Glucose 98 96 Estimat Average Glucose Hemoglobin A1c Calcium Magnesium Total Bilirubin AST ALT Alkaline Phosphatase C-Reactive Protein Total Protein Albumin Globulin Albumin/Globulin Ratio Urine Color Urine Appearance Urine pH Ur Specific [place] Urine Protein Urine Glucose (UA) Urine Ketones Urine Blood Urine Nitrite Urine Bilirubin Urine Urobilinogen Ur Leukocyte Esterase Urine Comment CSF Lactate Random Vancomycin A. phagocytophilum DNA Babesia microti DNA PCR 02/15/25 02/15/25 02/15/25 08:56 08:56 08:56 WBC RBC Hgb Hct MCV MCH MCHC RDW Std Deviation RDW Coeff of Rosi Plt Count MPV Sodium Potassium Chloride Carbon Dioxide Anion Gap BUN Creatinine 0.59 L Est Cr Clr Drug Dosing 116.7 114.7 eGFR 121.71 121.21 BUN/Creatinine Ratio 10.2 Glucose 117 H POC Glucose Estimat Average Glucose Hemoglobin A1c Calcium 9.1 Magnesium 1.9 Total Bilirubin 0.3 AST 22 ALT 50 Alkaline Phosphatase 71 C-Reactive Protein 1.13 H Total Protein 6.7 D Albumin 3.9 Globulin 2.8 Albumin/Globulin Ratio 1.4 Urine Color Urine Appearance Urine pH Ur Specific [place] Urine Protein Urine Glucose (UA) Urine Ketones Urine Blood Urine Nitrite Urine Bilirubin Urine Urobilinogen Ur Leukocyte Esterase Urine Comment CSF Lactate Random Vancomycin 15.3 A. phagocytophilum DNA Babesia microti DNA PCR 02/15/25 11:57 WBC RBC Hgb Hct MCV MCH MCHC RDW Std Deviation RDW Coeff of Rosi Plt Count MPV Sodium Potassium Chloride Carbon Dioxide Anion Gap BUN Creatinine Est Cr Clr Drug Dosing eGFR BUN/Creatinine Ratio Glucose POC Glucose 114 H Estimat Average Glucose Hemoglobin A1c Calcium Magnesium Total Bilirubin AST ALT Alkaline Phosphatase C-Reactive Protein Total Protein Albumin Globulin Albumin/Globulin Ratio Urine Color Urine Appearance Urine pH Ur Specific [place] Urine Protein Urine Glucose (UA) Urine Ketones Urine Blood Urine Nitrite Urine Bilirubin Urine Urobilinogen Ur Leukocyte Esterase Urine Comment CSF Lactate Random Vancomycin A. phagocytophilum DNA Babesia microti DNA PCR PG Care Time/CCT Total # of Minutes Spent Total Time Spent with Patient: Total time spent is greater than 50% in coordination of care (as documented) at patient's floor/unit and/or counseling patient: Coding Level of Care Code 67518 SUB INP/OBS CARE 1/25MIN Diagnoses Left upper extremity numbness R20.0 Complicated migraine G43.109 Time Spent (min) 20
--- NOTE | 2025-02-16 11:33 | Infectious Disease Progress Nt ---
Date of Service February 16, 2025 Assessment & Plan (1) Complicated migraine: (2) Left arm weakness: (3) Neck pain: (4) Headache: (5) Left upper extremity numbness: Plan This is a 35-year-old female with a past medical history of migraines who presents to the ED on 02/09/2025 who presents with progressive headaches since 02/04/2025. She also endorsed left upper extremity numbness and neck pain. Headaches began on 02/04/2025 with nausea. She then developed diffuse neck pain and left upper extremity numbness, weakness and left shoulder pain that progressed prompting presentation to the ED. Her symptoms worsened with initiation of her menses. She complained of chest pain and shortness of breath. She denied fever or chills. In the ED she was febrile with a TM of 38.8. Labs: WBC 7.6, hemoglobin 9.9, platelets 335, BUN 13, creatinine 0.59, AST 45--> 84, ALT 50--> 111. Lyme screen equivocal. Lyme IgG negative, IgM positive. Anaplasma smear with no evidence of intracytoplasmic neutrophil inclusions to suggest anaplasmosis. Babesia smear negative. CT head showed no acute findings. CTA head with no definite stenosis or aneurysm of the intracranial arteries. CTA neck with no definitive stenosis of the neck arteries. CTA chest with no evidence of pulmonary embolism. MRI brain with no acute ischemia, space-occupying mass or other intracranial pathology seen. No DVT of the left upper extremity. CTA PE with no acute findings. Given her fever and headaches she was started empirically on [employer] antibiotic coverage with ceftriaxone, ampicillin, vancomycin. She was started on doxycycline for possible Lyme disease. She underwent an LP. ID consulted for fever, headache, left-sided weakness. An E consult without video evaluation completed as video/camera is not working. History obtained from chart review. Microbiology: 02/09/2025 Anaplasma smear 02/09/2025 babesiosis smear negative 02/09/2025 Babesia PCR NOT detected 02/09/2025 Lyme screen equivocal, Lyme IgG negative, Lyme IgM positive 02/10/2025 blood culture NG 02/11/2025 CSF culture NG 02/11/2025 CSF Meningitis/ encephalitis PCR negative for CMV, enterovirus, E. coli, H influenza, HSV 1/2, HHV, Listeria, Neisseria meningitidis, strep agalactiae, strep pneumonia, VZV, parechovirus 02/11/2025 CSF Lyme immunoblot pending 02/11/2025 CSF VDRL pending 02/11/2025 CSF crypto antigen pending 02/11/2025 CSF Borrelia Burgdorferi PCR pending 02/11/2025 CSF Borrelia Miyamotoi PCR pending 02/11/2025 CSF West Nile PCR pending 02/11/2025 serum TPPA negative 02/11/2025 Anaplasma PCR NOT DETECTED 02/11/2025 HIV 1/2 antigen antibody negative Antibiotics: Ampicillin Acyclovir 02/11-02/12 vancomycin Ceftriaxone 02/10current Doxycycline # Meningitis with neutrophilic predominant pleocytosis -Headaches, fever, Csf wbc 45 ( 93% neutrophils) # Possible Lyme disease with cardiac and [employer] involvement # Transaminitis, resolved # Sinus Bradycardia Discussion: Given her headache, fever, neurologic symptoms, she was started on empiric coverage for potential [employer] infection. She was covered empirically for bacterial etiologies and Viral etiology such as HSV + VZV Csf with 45 WBC ( 93 .4% neutrophils). CSF glucose 58, protein 48.3. Meningitis/ Encephalitis PCR negative. CSF cx pending. She has an equivocal Lyme screen with a positive IgM, negative IgG. She was started on oral doxycycline for possible Lyme disease . Ceftriaxone which she is on for [employer] coverage will also cover. Anaplasma and babesiosis smear is negative .Babesia and Anaplasma PCR pending. Given available CSF studies, a viral etiology is less likely, including hsv/vzv as pcr negative. Listeria less likely as PCR neg. Will dc ampicillin and acyclovir A bacterial etiology is possible as there is a neutrophil predominance. Lyme [employer] infection possible. Lyme gaming dealer ab testing pending. Less likely neurosyphilis as serum TPPA negative. 02/12 Afebrile for >24 hours WBC 4.54 hemoglobin 7.5, hematocrit 25.2, platelets 288. CSF Lyme testing/immunoblot, Borrelia pcr, West Nile pcr , VDRL pending HIV ag/ab and TPPA negative. Discontinued ampicillin + acyclovir 02/15- Has had sinus bradycardia with HR low to 40. Possibly 2/2 Lyme. Evaluated by cardiology- no intervention. CSf cx NG Babesia and anaplasma pcr negative CSF lyme studies pending. Discontinued vancomycin as Csf culture NG Discontinued doxycycline as Anaplasma smear and PCR not detected. Changed Ceftriaxone to one say 02/16 5/10 neck pain and UE pain and weakness per d/w team. Some CSF studies pending. Recommendations: Continue ceftriaxone 2 g IV DAILY for possible Lyme meningitis ( additional testing pending). Plan for Ceftriaxone 2 g IV DAILY for 28 d ( 02/10-03/09). Since she continues to have UE weakness and neck pain per d/w team will not switch over to doxycycline at this time Follow-up CSF studies -West Nile pcr, Borrelia PCR, Lyme immunoblot -Follow up CSF vdrl (less likely to be positive with a neg serum TPPA) - weekly Cbc with diff, cmp, crp on IV abx. Faxes should be sent to [phone]. ID office attention- [facility] - [phone] - ID followup in 2- 3 weeks ID will sign off. ID follow up in 2- 3 weeks. Rikki Nazario MD, MPH Infectious Disease [facility], ID Division Call [phone] with questions. Admission and Anticipated Discharge Date Admission Date: February 11, 2025 Subjective This patient recommendation is based on a telemedicine consult request which was completed asynchronously through chart review and information provided by the primary physician. The patient was not seen or examined today. The evaluation is consultative in nature and all patient care and treatment decisions can either be accepted or rejected by the patient's primary hospital-based treating physician using their own independent medical judgment for their patient. Time Spent Reviewing Chart: 21 - 30 minutes Afebrile On RA Mild neck pain and UE pain per d/w team CSF lyme, west nile and VDRL testing pending. Results & Data Vital Signs (Past 12 Hours) Vital Signs Temp Pulse Pulse Resp BP Pulse Ox O2 Del Method 02/16/25 11:19 36.5 C 66 16 105/63 99 Room Air 02/16/25 08:21 56 L 02/16/25 07:22 36.5 C 61 14 107/67 99 Room Air 02/16/25 02:45 36.7 C 64 16 100/59 L 97 Room Air Laboratory Results Laboratory Results - last 48 hr 02/09/25 02/11/25 02/11/25 17:45 05:24 10:43 WBC RBC Hgb Hct MCV MCH MCHC RDW Std Deviation RDW Coeff of Rosi Plt Count MPV Sodium Potassium Chloride Carbon Dioxide Anion Gap BUN Creatinine Est Cr Clr Drug Dosing eGFR BUN/Creatinine Ratio Glucose POC Glucose Calcium Magnesium Total Bilirubin AST ALT Alkaline Phosphatase C-Reactive Protein Total Protein Albumin Globulin Albumin/Globulin Ratio CSF Lactate 14.7 Random Vancomycin A. phagocytophilum DNA Negative Babesia microti DNA PCR Not Detected 02/14/25 02/14/25 02/14/25 12:01 16:44 20:35 WBC RBC Hgb Hct MCV MCH MCHC RDW Std Deviation RDW Coeff of Rosi Plt Count MPV Sodium Potassium Chloride Carbon Dioxide Anion Gap BUN Creatinine Est Cr Clr Drug Dosing eGFR BUN/Creatinine Ratio Glucose POC Glucose 107 H 101 H 98 Calcium Magnesium Total Bilirubin AST ALT Alkaline Phosphatase C-Reactive Protein Total Protein Albumin Globulin Albumin/Globulin Ratio CSF Lactate Random Vancomycin A. phagocytophilum DNA Babesia microti DNA PCR 02/15/25 02/15/25 02/15/25 08:04 08:56 08:56 WBC 4.94 RBC 4.04 L Hgb 9.3 L Hct 29.5 L MCV 73.0 L MCH 23.0 L MCHC 31.5 L RDW Std Deviation 43.9 RDW Coeff of Rosi 16.7 H Plt Count 443 H MPV 9.4 Sodium 141 Potassium 3.5 Chloride 106 Carbon Dioxide 27 Anion Gap 8 BUN 6 Creatinine 0.58 L 0.59 L Est Cr Clr Drug Dosing 116.7 eGFR BUN/Creatinine Ratio Glucose POC Glucose 96 Calcium Magnesium Total Bilirubin AST ALT Alkaline Phosphatase C-Reactive Protein Total Protein Albumin Globulin Albumin/Globulin Ratio CSF Lactate Random Vancomycin A. phagocytophilum DNA Babesia microti DNA PCR 02/15/25 02/15/25 02/15/25 08:56 08:56 11:57 WBC RBC Hgb Hct MCV MCH MCHC RDW Std Deviation RDW Coeff of Rosi Plt Count MPV Sodium Potassium Chloride Carbon Dioxide Anion Gap BUN Creatinine Est Cr Clr Drug Dosing 114.7 eGFR 121.71 121.21 BUN/Creatinine Ratio 10.2 Glucose 117 H POC Glucose 114 H Calcium 9.1 Magnesium 1.9 Total Bilirubin 0.3 AST 22 ALT 50 Alkaline Phosphatase 71 C-Reactive Protein 1.13 H Total Protein 6.7 D Albumin 3.9 Globulin 2.8 Albumin/Globulin Ratio 1.4 CSF Lactate Random Vancomycin 15.3 A. phagocytophilum DNA Babesia microti DNA PCR Microbiology 02/10/25 18:08 Blood Aerobic Blood Culture - Final No growth in Aerobic bottle after 5 days. 02/10/25 18:08 Blood Anaerobic Blood Culture - Final No growth in Anaerobic bottle after 5 days. 02/10/25 18:04 Blood Aerobic Blood Culture - Final No growth in Aerobic bottle after 5 days. 02/10/25 18:04 Blood Anaerobic Blood Culture - Final 02/11/25 10:43 Cerebral Spinal Fluid Gram Stain - Final 02/11/25 10:43 Cerebral Spinal Fluid CSF Culture - Final No growth Medications Administered Home Medications Medication Instructions Recorded Confirmed Last Taken doxycycline hyclate 100 mg tablet 100 mg PO BID 28 days #56 tabs 02/15/25 Unknown meloxicam 7.5 mg tablet 7.5 mg PO DAILY 10 days #10 tabs 02/15/25 Unknown Active Medications Generic Name Dose Route Start Last Admin Trade Name Freq PRN Reason Stop Dose Admin Acetaminophen 1,000 mg 02/12/25 20:37 02/13/25 21:47 Acetaminophen 500 Mg Tab PO 03/14/25 20:36 1,000 mg Q8H PRN Administration Pain or Fever Ceftriaxone Sodium 2,000 mg in 50 mls @ 100 mls/hr 02/16/25 05:00 02/16/25 05:03 Rocephin IV 02/26/25 04:59 Infused DAILY@0500 [facility] Infusion Ketorolac Tromethamine 15 mg 02/12/25 20:36 02/16/25 07:11 Ketorolac Tromethamine 15 Mg/Ml Vial IV 02/17/25 20:35 15 mg Q6H PRN Administration Pain Ondansetron HCl 4 mg 02/10/25 14:53 02/13/25 08:06 Ondansetron Inj 2 Mg/Ml 2 Ml Vial IV 03/12/25 14:52 4 mg Q6H PRN Administration Nausea And Vomiting Sumatriptan Succinate 50 mg 02/10/25 02:49 02/16/25 09:54 Sumatriptan Succinate 50 Mg Tab PO 03/12/25 02:48 50 mg Q2H PRN Administration Migraine Headache (4) Headache Headache type: other headache syndrome Qualified Code(s): G44.89 - Other headache syndrome
[2025-02-16 13:00] VITALS: BP 118/74; RESP 14; TEMP 98.2; O2SAT 100
[2025-02-16 16:31] VITALS: PULSE 70
--- NOTE | 2025-02-16 16:57 | Discharge Summary ---
Discharge Summary Date of Service February 16, 2025 Principal Dx & Hospital Course #1 = Principal Diagnosis (1) Left upper extremity numbness: Tierney Arriaga is a 34 yo woman with hx of cardiac arrhythmia. She was seen by [facility] in the past, but lost f/u she's presented to our hospital on 02/04 with headache, neck pain and left arm pain, her brain MRI and CTA negative for stroke her lyme IgM is positive. however, she's spike fever of 38.8 with headache, she was started on ampicillin, ceftriaxone, vancomycin and acyclovir. ID consulted and s/p Lumbar puncture o 02/11 and concern for high WBC of of 45. her CSF total protein is elevated at 48.3 her CSF lyme studies was still pending her CSF menigitis PCR, L monocycotonges, HSV 1 and HSV 2 are negative. 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 we discussed about the tetragonic potential of ceftriaxone and doxycycline, she and her boyfriend was advised about control during the duration of antibiotics usage (2) Complicated migraine: Plan Patient is a 34 y/o F with PMHx of migraines who comes to the ED after experiencing progressively worsening headaches since 02/04. her brain MRI and CTA negative however, around 3:30pm on 02/10/2025; she spike fever of 38.8 check blood culture, s/p LP on 02/11/2025, on ceftriaxone, neck pain improved but still has headache she's has no PCP acute meningitis on 02/16, continue to has 5/10 headache and neck pain ID, Dr. mchugh requested for ceftriaxone for 28 days f/u on CSF lyme titer appreciate case management assistance with setting up ceftriaxone bradycardia episode HR in the 30-40s, HR been > 45 addressing hypokalemia in the past, she was seen by [facility] no dizziness; no lightheadedness hypokalemia deposition she can be dc today if we can set up IV ceftriaxone Dr. Mchugh (ID) is agreeable for outpatient f/u she's will need weekly CMP, LFT, CBC while on ceftriaxone she will need to f/u with cardiology Dr. Merrill for event monitor pre-diabetes pericardial cyst f/u on echocardiogram she need close f/u with Dr. Keny Merrill PMH Of migraine headache her current headache is different from her typical migraine headache Diet: Regular Pain Control: Tylenol jeffrey, Toradol for breakthrough pain; can add Sumatriptan if MRI brain unremarkable VTE ppx: Ambulation Code Status: FULL Admission HPI Per Admitting Provider Patient is a 34 y/o F with PMHx of migraines who comes to the ED after experiencing progressively worsening headaches since 02/04. The day after her headache appeared, she developed nausea and on 02/06 started to develop some neck tightness along with her headache. Sxs persisted and on 02/07-02/08 she started to experience pain in her left shoulder that was achy and felt like shooting down her arm sometimes, numbness down her left arm and then developed weakness in her left arm. Sxs always accompanied by headaches. Sxs more bothersome with start of menses on 02/05-02/06. Not currently on hormonal methods of contraception. Denies trauma, hx of surgical intervention, or other preceding/precipitating events. No fevers, chills, chest pain, SOB/EDWARDS, or other systemic sxs. Medical History: [Reviewed] Medications: [Reviewed] Surgical History: [Reviewed] Family history: [Reviewed] Allergies: [Reviewed] Social History: [Reviewed] Code Status: FULL Discharge Exam VITALS: Reviewed. WEIGHT/BMI reviewed. GEN: Healthy appearing, well-developed, NAD. PSYCH: Good Judgment. AOx3. Normal memory, mood, and affect. HEENT -Head: NC/AT; -Mouth and throat: MMM. Normal gums, mucosa, palate,. Good dentition. NECK: her tenderness continue to improved CV: RRR, no m/r/g. LUNGS: CTAB, no w/r/c. ABD: Soft, NT/ND, NBS, no masses or organomegaly. : N/A SKIN: Warm, well perfused. No skin rashes or abnormal lesions. MSK: No deformities, Normal gait. EXT: No clubbing, cyanosis, or edema. NEURO: AAox3. Discharge Plan Discharge Items Patient Disposition: Home - Home Health Services Reason For Visit: FEVER, HEADACHE, SEPSIS Discharge Diagnosis: lyme meninigits Condition on Discharge: Good Activity: Resume your previous activity Non-emergency contact: Primary Care Provider Call non-emergency contact if: your symptoms worsen, you have a fever and your rectal temperature is above 100.4 Follow-up/Referrals: Kina Smith, [Primary Care Provider] - 02/19/25 3:00 pm PCP,NO [Physician] - Diet: Carb Consistent or DM2 Addtl Attending Provider Instructions: you presented to the hospital with headache, neck pain and left arm weakness you will be on intravenous antibiotics (ceftriaxone) until March 09, 2025 while you on are ceftriaxone, do not take doxycycline use control during your antibiotics treatment. you will need to see Dr. Isabelle Mchugh (infectious disease) for follow up appointment you will has primary care appointment with dr. Kina Smith on Feb 19, 2025 if you has worsening headache, neck pain,confusion, worsening weakness you will need to return to emergency room for evaluation in addition, follow up with cardiology to evaluate your slow heart rate make appointment to see Dr. Keny Merrill in 7-10 days Pending Studies at Discharge: Yes Studies:: follow up on CSF lyme studies Stand-Alone Forms: My BlogCN, Smoking Cessation Medications and DC Order Prescriptions: New doxycycline hyclate 100 mg tablet 100 mg PO BID 28 Days Qty: 56 0RF meloxicam 7.5 mg tablet 7.5 mg PO DAILY 10 Days Qty: 10 0RF ceftriaxone 2 gram recon soln 2 g IV DAILY 28 Days Discharge Orders: Discharge Order (Routine); Ordered 02/16/25 Ordered By: Christ Smiley/Other Patient Handouts: A1C, Borrelia Antibody (CSF), Meningitis, ED Lyme Disease Admission Data Admit Date/Time: 02/11/25 09:38 Attending Provider: Christ Stephens Admit Provider: Mely Colón Primary Care Provider: Kina Smith Other Providers: Dimas Can; Inocente Guido; Keny Merrill Other Interventions: Discharge Summary Assessment (RN) Last Done: 02/16/25 16:31 Hospital Stay Data Consultations 02/09/25 22:38 ED Decision to Admit Stat 02/10/25 16:03 Consult Neurology Routine 02/10/25 16:29 Consult Infectious Diseases Routine 02/13/25 07:45 Consult Cardiology Routine Diagnostic Imagining Performed 02/09/25 17:11 CT head/brain wo con Stat 02/09/25 18:14 CT angio head w con Stat CT angio neck with con Stat 02/09/25 18:17 CT angio chest PE protocol Stat 02/09/25 19:27 MR cervical spine wo con Stat 02/10/25 00:07 MR brain wo con Routine 02/10/25 12:45 US venous duplex arm [US venous doppler UE LT] Routine 02/10/25 14:16 CT abdomen pelvis wo/w con Urgent CT angio chest dissec wo/w con Stat 02/11/25 09:00 IR lumbar puncture diagnostic Routine Pending Results Patient Have Any Pending Studies at Discharge: Yes Discharge Instructions Given to Patient (Per Discharging Provider) you presented to the hospital with headache, neck pain and left arm weakness you will be on intravenous antibiotics (ceftriaxone) until March 09, 2025 while you on are ceftriaxone, do not take doxycycline use control during your antibiotics treatment. you will need to see Dr. Isabelle Mchugh (infectious disease) for follow up appointment you will has primary care appointment with dr. Kina Smith on Feb 19, 2025 if you has worsening headache, neck pain,confusion, worsening weakness you will need to return to emergency room for evaluation in addition, follow up with cardiology to evaluate your slow heart rate make appointment to see Dr. Keny Merrill in 7-10 days Total Time Total Time Spent Total Time Spent (In Minutes): 35 Coding Level of Care Code 54005 INP/OBS DISCH >30 MIN Diagnoses Left upper extremity numbness R20.0 Complicated migraine G43.109 Time Spent (min) 34
[2025-02-16 19:11] LABS: Borrelia miyamotoi DNA Not Detected (Not Detected); Borrelia miyamotoi Source CSF; Source CSF; West Nile Virus, PCR Source CSF; West Nile Virus, PCR, CSF NOT DETECTED (NOT DETECTED)
[2025-02-16 22:37] LABS: CSF, LDH 13 U/L (<=25); VDRL Qualitative CSF Nonreactive (Nonreactive)
--- NOTE | 2025-02-18 16:34 | Electrocardiogram Report ---
Test Reason : Blood Pressure : */* mmHG Vent. Rate : 47 BPM Atrial Rate : 47 BPM P-R Int : 188 ms QRS Dur : 96 ms QT Int : 474 ms P-R-T Axes : 34 209 199 degrees QTcB Int : 419 ms Poor data quality, interpretation may be adversely affected Sinus bradycardia Right superior axis deviation Low voltage QRS Abnormal ECG When compared with ECG of 12-Feb-2025 21:38, Questionable change in QRS axis Nonspecific T wave abnormality now evident in Inferior leads Nonspecific T wave abnormality has replaced inverted T waves in Anterior leads Confirmed by Keny Merrill ([id number]) on 02/18/2025 4:33:32 PM Referred By: REFERRED SELF Confirmed By: Keny Merrill
[2025-02-19] MEDS ORDERED: VANCOMYCIN LEVEL ONE (08:30)
== END 2025-02-16 17:00 | disposition home health service (06) | DRG 869 ==
LOC: ED 17:02 → EDINP 17:02 → SUATTDRO 23:37 → 2W 23:53